=== PATIENT | male | born 1940 | race Caucasian/White ===

== ENCOUNTER 2018-08-25 11:08 | Inpatient (IN) ==
[2018-08-25 12:40] LABS: Baso % (Auto) 0.6 % (0.0-2.0); Eos # (Auto) 0.1 th/mm3 (0.0-0.4); Eos % (Auto) 2.4 % (0.0-4.0); Hematocrit 30.9 % (39.0-51.0); Hemoglobin 9.6 gm/dL (13.0-17.0); Lymph # (Auto) 1.5 th/mm3 (1.0-4.8); Lymph % (Auto) 33.6 % (9.0-44.0); Mean Corpuscular Hemoglobin 23.4 pg (27.0-34.0); Mean Corpuscular Volume 75.7 fL (80.0-100.0); Mean Platelet Volume 11.6 fL (7.0-11.0); Mono # (Auto) 0.7 th/mm3 (0.0-0.9); Mono % (Auto) 14.2 % (0.0-8.0); Neut # (Auto) 2.3 th/mm3 (1.8-7.7); Neut % (Auto) 49.2 % (16.0-70.0); Platelet Count 149 th/mm3 (150-450); Red Blood Count 4.09 mil/mm3 (4.50-5.90); Red Cell Distribution Width 26.5 % (11.6-17.2); White Blood Count 4.6 th/mm3 (4.0-11.0)
[2018-08-25 12:41] LABS: Mean Corpuscular HGB Conc 30.9 % (32.0-36.0)
[2018-08-25 12:43] LABS: Activated Partial Thrombo Time 29.4 sec (23.4-31.7); INR 1.2 Ratio; Prothrombin Time 12.5 sec (9.8-11.6)
--- NOTE | 2018-08-25 12:46 | XR ---
EXAM DATE: 08/25/2018 12:30 PM EST AGE/SEX: 78 years / Male INDICATIONS: Shortness of breath. CLINICAL DATA: This is the patient's initial encounter. Patient reports that signs and symptoms have been present for 1 day and indicates a pain score of 0/10. MEDICAL/SURGICAL HISTORY: Cardiovascular disease. CABG. Pacemaker. COMPARISON: No prior exams available for comparison. FINDINGS: Portable AP view of the chest demonstrates a normal-sized cardiac silhouette in this patient post med jose r sternotomy and valve replacement. Left chest wall pacing device is present with leads overlying t he heart. EKG lines overlie the patient. There is mild perihilar and lower lung zone interstitial opa city. No pleural effusion, pneumothorax, or focal consolidation is identified. Bones and soft tissues demonstrate no acute abnormality. CONCLUSION: Mild perihilar and lower lung zone interstitial opacity. This pattern is suggestive of pulmonary leslie a. Electronically signed by: Anmol Bowens MD 08/25/2018 12:44 PM EST
[2018-08-25 12:52] LABS: Alanine Aminotransferase 33 U/L (12-78); Albumin 3.4 g/dL (3.4-5.0); Anion Gap 8 meq/L (5-15); Aspartate Aminotransferase 32 U/L (15-37); Blood Urea Nitrogen 39 mg/dL (7-18); Calcium 8.1 mg/dL (8.5-10.1); Carbon Dioxide 25.5 meq/L (21.0-32.0); Chloride 106 meq/L (98-107); Glomerular Filtration Rate 64 mL/min (>89); Glucose,Random 87 mg/dL (74-106); Potassium 4.1 meq/L (3.5-5.1); Sodium 139 meq/L (136-145)
--- NOTE | 2018-08-25 12:55 | ED ---
HPI General Chief Complaint: Chest Pain Stated Complaint: doc sent/abnl ekg Time Seen by Provider: 08/25/18 12:04 Source: patient Mode of arrival: ambulatory Limitations: no limitations History of Present Illness HPI narrative: Patient is a 78-year-old male with history of hypertension, diabetes, obesity, hyperlipidemia who was sent to the emergency room by his coroner technician, Dr. Baig for admission. Patient reports that he was seen in the office today and was told to go to the emergency room for admission. He has a [employer] pacemaker, it was interrogated today and it showed a possible RV lead fracture. Patient reports that he has been having shortness of breath at nighttime, reports that he has swelling to his lower extremities, he was told to come to the ER to have his pacemaker repaired as well as have the " fluid taken off of me." Reports that every night, he has chest pain. Patient reports that he does have a pressure to his chest only at night time. this has been ongoing for "a long time." Patient currently with no chest pain at this time. Related Data Home Medications Medication Instructions Recorded Confirmed aspirin 81 mg PO DAILY 08/25/18 08/25/18 atorvastatin 20 mg PO DAILY 08/25/18 08/25/18 bumetanide 1 mg PO BID 08/25/18 08/25/18 ferrous sulfate [iron] 325 mg PO DAILY 08/25/18 08/25/18 levothyroxine 200 mcg PO 5 TIMES A DAY 08/25/18 08/25/18 levothyroxine 300 mcg PO 2XWEEK 08/25/18 08/25/18 metformin 1,000 mg PO BID 08/25/18 08/25/18 rivaroxaban [Xarelto] 20 mg PO DAILY 08/25/18 08/25/18 sacubitril-valsartan [Entresto] 1 tab PO BID 08/25/18 08/25/18 tamsulosin 0.4 mg PO DAILY 08/25/18 08/25/18 Allergies Allergy/AdvReac Type Severity Reaction Status Date / Time No Known Allergies Allergy Verified 08/25/18 12:07 Review of Systems ROS: all other systems reviewed are negative [facility] Medical History Medical History Atrial fibrillation (Acute) Biventricular ICD (implantable cardioverter-defibrillator) in place (Acute) CAD (coronary artery disease) (Acute) CHF (congestive heart failure) (Acute) Cardiomyopathy (Acute) Carotid artery disease (Acute) DVT (deep venous thrombosis) (Acute) Dyslipidemia (Acute) Hypertension (Acute) Pacemaker (Acute) Pleural effusion (Acute) SOB (shortness of breath) (Acute) Surgical History Surgical History AICD (automatic cardioverter/defibrillator) present (Acute) H/O cardiac catheterization (Acute) History of back surgery (Acute) History of hip replacement (Acute) Hx of CABG (Acute) Social History Social History Substance History: No History of Abuse Smoking Status: Never smoker How Often Do You Have a Drink Containing Alcohol: Never Recent Travel in [facility] within the Last 8 Weeks: No Recent Out of Country Travel within the Last 8 Weeks: No Immunization History Tetanus Immunization: Never Vaccinated Exam Narrative Exam Narrative: GENERAL: NAD SKIN: Focused skin assessment warm/dry. HEAD: Atraumatic. Normocephalic. EYES: Pupils equal and round. No scleral icterus. No injection or drainage. ENT: No nasal bleeding or discharge. Mucous membranes pink and moist. NECK: Trachea midline. No JVD. CARDIOVASCULAR: Regular rate and rhythm. No murmur appreciated. RESPIRATORY: No accessory muscle use. Clear to auscultation. Breath sounds equal bilaterally. GASTROINTESTINAL: Abdomen soft, non-tender, nondistended. Hepatic and splenic margins not palpable. MUSCULOSKELETAL: No obvious deformities. No clubbing. No cyanosis. +3 pedal edema. NEUROLOGICAL: Awake and alert. No obvious cranial nerve deficits. Motor grossly within normal limits. Normal speech. PSYCHIATRIC: Appropriate mood and affect; insight and judgment normal. Course Initial Documented Vital Signs Temperature 98.1 F 08/25/18 11:20 Pulse Rate 68 08/25/18 11:20 Respiratory Rate 18 08/25/18 11:20 Blood Pressure 123/56 L 08/25/18 11:20 Pulse Oximetry 98 08/25/18 11:20 Last Documented Vital Signs Temperature 98.1 F 08/25/18 11:20 Pulse Rate 81 08/25/18 12:18 Respiratory Rate 16 08/25/18 12:16 Blood Pressure 182/64 H 08/25/18 12:16 Pulse Oximetry 99 08/25/18 12:18 Medical Decision Making MDM Narrative Medical decision making narrative: During the course of the patients emergency department visit, the patients history, examination, and differential diagnosis were reviewed with the patient. The patient was placed on a cardiac care nurse with oximetry and frequent blood pressure monitoring. The patient had an IV access obtained and blood work sent for analysis. The patient was initially provided aspirin as patient did complain of chest pain. Call made to Dr. Baig to review case Call reviewed with Dr. Baig, request admission to medicine service and nuclear stress test. Consult to cardiology. Request heparin drip - he was seen in the office for the first time today, he is poorly managed and there is concern for unstable angina. 1st set of trop less than 0.02 will admit to medicine service case reviewed with FP resident - will admit to Dr. Sandhu service Medical Screen Exam Complete: Yes Emergency Medical Condition: Yes Differential Diagnosis Differential Diagnosis: ACS, arrhythmia, CHF exacerbation, RV lead failure to pacemaker. Lab Data Result diagrams: 08/25/18 12:20 08/25/18 12:20 Lab Results 08/25/18 08/25/18 08/25/18 Range/Units 12:20 12:20 12:20 WBC 4.6 (4.0-11.0) th/mm3 RBC 4.09 L (4.50-5.90) mil/mm3 Hgb 9.6 L (13.0-17.0) gm/dL Hct 30.9 L (39.0-51.0) % MCV 75.7 L (80.0-100.0) fL MCH 23.4 L (27.0-34.0) pg MCHC 30.9 L (32.0-36.0) % RDW 26.5 H (11.6-17.2) % Plt Count 149 L (150-450) th/mm3 MPV 11.6 H (7.0-11.0) fL Prelim Diff (Auto) Slide review pending Neut % (Auto) 49.2 (16.0-70.0) % Lymph % (Auto) 33.6 (9.0-44.0) % Republic % (Auto) 14.2 H (0.0-8.0) % Eos % (Auto) 2.4 (0.0-4.0) % Baso % (Auto) 0.6 (0.0-2.0) % Neut # (Auto) 2.3 (1.8-7.7) th/mm3 Lymph # (Auto) 1.5 (1.0-4.8) th/mm3 Republic # (Auto) 0.7 (0.0-0.9) th/mm3 Eos # (Auto) 0.1 (0.0-0.4) th/mm3 Baso # (Auto) 0.0 (0.0-0.2) th/mm3 WBC Differential . Diff Scan Auto diff confirmed Differential Comment . Platelet Estimate Low L (Normal) Platelet Morphology Enlarged H (Normal) Dimorphic RBCs Present H (None) Ovalocytes 1+ H (None) Acanthocytes (Spur) Occ H (None) PT 12.5 H (9.8-11.6) sec INR 1.2 Ratio APTT 29.4 (23.4-31.7) sec Sodium 139 (136-145) meq/L Potassium 4.1 (3.5-5.1) meq/L Chloride 106 (98-107) meq/L Carbon Dioxide 25.5 (21.0-32.0) meq/L Anion Gap 8 (5-15) meq/L BUN 39 H (7-18) mg/dL Creatinine 1.11 (0.60-1.30) mg/dL Estimated GFR 64 L (>89) mL/min Random Glucose 87 (74-106) mg/dL Calcium 8.1 L (8.5-10.1) mg/dL Total Bilirubin 0.8 (0.2-1.0) mg/dL AST 32 (15-37) U/L ALT 33 (12-78) U/L Alkaline Phosphatase 141 H (45-117) U/L Total Creatine Kinase 38 L (39-308) U/L Troponin I Less than 0.02 L (0.02-0.05) ng/mL B-Natriuretic Peptide (0-100) pg/mL Total Protein 8.1 (6.4-8.2) g/dL Albumin 3.4 (3.4-5.0) g/dL 08/25/18 Range/Units 12:20 WBC (4.0-11.0) th/mm3 RBC (4.50-5.90) mil/mm3 Hgb (13.0-17.0) gm/dL Hct (39.0-51.0) % MCV (80.0-100.0) fL MCH (27.0-34.0) pg MCHC (32.0-36.0) % RDW (11.6-17.2) % Plt Count (150-450) th/mm3 MPV (7.0-11.0) fL Prelim Diff (Auto) Neut % (Auto) (16.0-70.0) % Lymph % (Auto) (9.0-44.0) % Republic % (Auto) (0.0-8.0) % Eos % (Auto) (0.0-4.0) % Baso % (Auto) (0.0-2.0) % Neut # (Auto) (1.8-7.7) th/mm3 Lymph # (Auto) (1.0-4.8) th/mm3 Republic # (Auto) (0.0-0.9) th/mm3 Eos # (Auto) (0.0-0.4) th/mm3 Baso # (Auto) (0.0-0.2) th/mm3 WBC Differential Diff Scan Differential Comment Platelet Estimate (Normal) Platelet Morphology (Normal) Dimorphic RBCs (None) Ovalocytes (None) Acanthocytes (Spur) (None) PT (9.8-11.6) sec INR Ratio APTT (23.4-31.7) sec Sodium (136-145) meq/L Potassium (3.5-5.1) meq/L Chloride (98-107) meq/L Carbon Dioxide (21.0-32.0) meq/L Anion Gap (5-15) meq/L BUN (7-18) mg/dL Creatinine (0.60-1.30) mg/dL Estimated GFR (>89) mL/min Random Glucose (74-106) mg/dL Calcium (8.5-10.1) mg/dL Total Bilirubin (0.2-1.0) mg/dL AST (15-37) U/L ALT (12-78) U/L Alkaline Phosphatase (45-117) U/L Total Creatine Kinase (39-308) U/L Troponin I (0.02-0.05) ng/mL B-Natriuretic Peptide 442 H (0-100) pg/mL Total Protein (6.4-8.2) g/dL Albumin (3.4-5.0) g/dL Imaging Data Radiologist's impression: Chest X-Ray 08/25/18 12:15 CONCLUSION: Mild perihilar and lower lung zone interstitial opacity. This pattern is suggestive of pulmonary edema. ECG Data EKG Prior to Arrival: No Attestation: I personally reviewed and interpreted this ECG as follows: Interpretation: EKG at 1216 shows ventricular paced at 77bpm, qt/qtc: 444/480 Discharge Plan Discharge Disposition Patient Disposition: ED Admit(ED Internal Use Only) Discharge Condition Condition: Fair Discharge Order Discharge Orders: ED Use Only Admit Order (Routine); Ordered 08/25/18 Ordered By: Angelica Ortiz Discharge Details Diagnosis: Unstable angina Physicians Team ED Provider: Angelica Ortiz Primary Care Provider: UNKNOWN, Rxs /Orders / Referrals /Forms Prescriptions: No Action metformin 500 mg Tablet 1,000 mg PO BID RF: 0 atorvastatin 20 mg Tablet 20 mg PO DAILY RF: 0 aspirin 81 mg Tablet,Delayed Release (Dr/Ec) 81 mg PO DAILY RF: 0 tamsulosin 0.4 mg Capsule 0.4 mg PO DAILY RF: 0 ferrous sulfate [iron] 325 mg (65 mg iron) Tablet 325 mg PO DAILY RF: 0 bumetanide 1 mg Tablet 1 mg PO BID RF: 0 levothyroxine 200 mcg Tablet 300 mcg PO 2XWEEK RF: 0 levothyroxine 200 mcg Tablet 200 mcg PO 5 TIMES A DAY RF: 0 rivaroxaban [Xarelto] 20 mg Tablet 20 mg PO DAILY RF: 0 sacubitril-valsartan [Entresto] 24-26 mg Tablet 1 tab PO BID RF: 0 Discharge Instructions Patient Printed Instructions: Chest Pain (ED) Status ED Status: With Doctor
[2018-08-25 12:56] LABS: Alkaline Phosphatase 141 U/L (45-117); Total Protein 8.1 g/dL (6.4-8.2)
[2018-08-25 12:57] LABS: Creatine Kinase 38 U/L (39-308)
[2018-08-25 13:06] LABS: Acanthocytes Occ; Dimorphic RBC Present; Ovalocytes 1+
--- NOTE | 2018-08-25 13:57 | P.HPFP ---
History of Present Illness Primary Care Physician: UNKNOWN <Safia Weiss R - 08/26/18 10:57> Dr. García <Sherry Pereyra U - 08/25/18 16:27> History of Present Illness: Patient is a 78-year-old male with past medical history of congestive heart failure with pacemaker placement, diabetes, hypertension, and DVT that [facility] with a chief complaint of chest pain of several weeks duration. He describes the chest pain as steady pain that happens only at night for which he takes 2 [id number]-fhowuyh pain pills. By the time he wakes up in the morning, the pain is gone. However he has increasingly become short of breath with short distances such that he has to stop and catch his breath. He is unable to perform certain tasks without being short of breath. He sleeps upright and uses 2-3 pillows at night. He has also been very congested and sometimes coughs up white phlegm. His primary care doctor referred him to a paper bags sewing machine operator who interrogated his pacemaker and discovered something wrong with it. Consequently, he was referred to Dr. Baig who he saw this morning. Dr. Baig identified fracture in his pacemaker and asked him to come into the ED because he was so short of breath and because of his history of chest pain. He was told that fluid needs to be taken off of him. Notably, the patient lives by himself and generally eats daily at the restaurant. He states that he has been restricting his fluids but has not really been restricting salt. He has had chills but no fever. He also reports having itchy dry skin. He denies nausea, vomiting, dizziness, dysuria. He has felt weak and fatigued and has lacked energy. In addition he reports pain in his right side that is chronic, he feels like it is due to the way he sleeps. He states that he needs glasses because his vision is not the best. <Sherry Pereyra U - 08/25/18 17:01> - Diagnosis (1) Acute exacerbation of CHF (congestive heart failure) (2) Unstable angina (3) Pacemaker failure (4) Diabetes mellitus type 2 in obese (5) Hypertension (6) Hypothyroidism (7) Anemia (8) Thrombocytopenia <Safia Weiss - 08/26/18 10:57> (1) Acute exacerbation of CHF (congestive heart failure) (2) Unstable angina (3) Pacemaker failure (4) Diabetes mellitus type 2 in obese (5) Hypertension (6) Hypothyroidism (7) Anemia (8) Thrombocytopenia <[facility] 08/25/18 17:24> Inpatient Certification: I certify that the inpatient services were ordered in accordance with Medicare regulations governing the order. This includes certification that hospital inpatient services are reasonable and necessary and in the case of services not specified as inpatient-only under 42 CFR 419.22(n), that they are appropriately provided as inpatient services in accordance to with the 2-midnight benchmark under 43 CFR 412.3(e) <Safia Weiss [facility] 08/26/18 10:57> Review of Systems Constitutional: Reports chills, Reports fatigue, Reports weakness, Denies fever( s), Denies headache(s) <[facility] 08/25/18 16:30> Eyes: Reports blurry vision (chronic) <[facility] 08/25/18 16:30> Ears, Nose, Mouth, and Throat: Denies dizziness, Denies nasal congestion, Denies sore throat <[facility] 08/25/18 16:30> Cardiovascular: Reports chest pain, Reports chest pain with activity, Reports shortness of breath, Reports shortness of breath with activity, Reports shortness of breath when lying down <[facility] 08/25/18 16:30> Respiratory: Reports cough, Reports shortness of breath, Reports shortness of breath with activity <[facility] 08/25/18 16:30> Gastrointestinal: Reports nausea, Denies abdominal pain, Denies constipation, Denies vomiting blood <[facility] 08/25/18 16:30> Genitourinary: Denies blood in urine, Denies difficulty urinating <[facility] 08/25/18 16:30> Musculoskeletal: Denies muscle weakness <[facility] 08/25/18 16:30> Skin/Breast: Reports dry skin, Denies itching <[facility] 08/25/18 16:30> Neurologic: Denies dizziness <[facility] 08/25/18 16:30> Endocrine: Denies heat intolerance <Sherry Pereyra - 08/25/18 16:30> PMFSH - History History Provided By: Patient <Sherry Pereyra [facility] 08/25/18 13:57> - Medical History Medical History: Medical History (Last Reviewed 08/25/18 @ 16:30 by Sherry Pereyra MD, R3) Pacemaker Atrial fibrillation Biventricular ICD (implantable cardioverter-defibrillator) in place CAD (coronary artery disease) CHF (congestive heart failure) Cardiomyopathy Carotid artery disease DVT (deep venous thrombosis) Dyslipidemia Hypertension Pleural effusion SOB (shortness of breath) <Safia Weiss - 08/26/18 10:57> Medical History (Last Reviewed 08/25/18 @ 16:30 by Sherry Pereyra MD, R3) Pacemaker Atrial fibrillation Biventricular ICD (implantable cardioverter-defibrillator) in place CAD (coronary artery disease) CHF (congestive heart failure) Cardiomyopathy Carotid artery disease DVT (deep venous thrombosis) Dyslipidemia Hypertension Pleural effusion SOB (shortness of breath) <Sherry Pereyra [facility] 08/25/18 16:31> - Surgical History Surgical History: Surgical History (Last Reviewed 08/25/18 @ 16:30 by Sherry Pereyra MD, R3) AICD (automatic cardioverter/defibrillator) present H/O cardiac catheterization History of back surgery History of hip replacement Hx of CABG <Safia Weiss [facility] 08/26/18 10:57> Surgical History (Last Reviewed 08/25/18 @ 16:30 by Sherry Pereyra MD, R3) AICD (automatic cardioverter/defibrillator) present H/O cardiac catheterization History of back surgery History of hip replacement Hx of CABG <Sherry Pereyra [facility] 08/25/18 16:31> - Social History I have reviewed the patient's Social History: Yes <Sherry Pereyra 08/25/18 16 :31> - Tobacco History Smoking Status: Former smoker (Smoked an average 1 pack/day x 61-years) <Sherry Pereyra 08/25/18 16:31> - Alcohol History How Often Do You Have a Drink Containing Alcohol: Never <Sherry Pereyra 08/25 13:57> - Substance Use History Substance History: No History of Abuse <Sherry Pereyra U - 08/25/18 13:57> - Travel History Recent Travel in the [place] Within the Last 8 Weeks: No <Sherry Pereyra U - 13:57> Recent Travel Out of the Country Within the Last 8 Weeks: No <Sherry Pereyra U - 08/25/18 13:57> - Immunization History Tetanus Immunization: Never Vaccinated <Sherry Pereyra U - 08/25/18 13:57> Medications and Allergies Allergies Allergy/AdvReac Type Severity Reaction Status Date / Time No Known Allergies Allergy Verified 08/25/18 12:07 <Safia Weiss R - 08/26/18 10:57> Home Medications Medication Instructions Recorded Confirmed Type aspirin 81 mg PO DAILY 08/25/18 08/25/18 History atorvastatin 20 mg PO DAILY 08/25/18 08/25/18 History bumetanide 1 mg PO BID 08/25/18 08/25/18 History ferrous sulfate [iron] 325 mg PO DAILY 08/25/18 08/25/18 History levothyroxine 200 mcg PO 5XW 08/25/18 08/25/18 History levothyroxine 300 mcg PO 2XWEEK 08/25/18 08/25/18 History metformin 1,000 mg PO BID 08/25/18 08/25/18 History rivaroxaban [Xarelto] 20 mg PO DAILY 08/25/18 08/25/18 History sacubitril-valsartan [Entresto] 1 tab PO BID 08/25/18 08/25/18 History tamsulosin 0.4 mg PO DAILY 08/25/18 08/25/18 History <Safia Weiss R - 08/26/18 10:57> Active Medications: Active Medications Acetaminophen (Tylenol) 650 mg PO Q4H PRN PRN Reason: Temp > 100.4 Aspirin (Ecotrin) 81 mg PO DAILY [facility] Last Admin: 08/26/18 09:53 Dose: 81 mg Atorvastatin Calcium (Lipitor) 40 mg PO DAILY [facility] Last Admin: 08/26/18 09:52 Dose: 40 mg Bumetanide (Bumex Inj) 1 mg IV.PUSH BID@0900,1800 [facility] Last Admin: 08/26/18 09:52 Dose: 1 mg Dextrose (D50w Vial) 50 ml IV.PUSH UNSCH PRN PRN Reason: PER HYPOGLYCEMIA PROTOCOL Diphenhydramine HCl (Benadryl) 25 mg PO ONCE PRN PRN Reason: ITCHING/HIVES/ANAPHYLAXIS Last Admin: 08/25/18 23:00 Dose: 25 mg Diphenhydramine HCl (Benadryl) 25 mg PO Q6H PRN PRN Reason: ITCHING AND/OR RASH Last Admin: 08/26/18 06:53 Dose: 25 mg Ferrous Sulfate (Ferosul) 325 mg PO DAILY [facility] Last Admin: 08/26/18 09:53 Dose: 325 mg Glucagon (Glucagon Inj) 1 mg OTHER UNSCH PRN PRN Reason: for Hypoglycemia Protocol Heparin Sodium/Dextrose (Heparin/D5w 25,000 U/250 Ml) 25,000 unit in 250 mls @ 0 mls/hr IV.CONT TITRATE PRN; Protocol PRN Reason: Per Protocol Last Titration: 08/26/18 04:05 Dose: 1,100 units/hr, 11 mls/hr Insulin Aspart (Novolog Insulin Correctional Sugar Inj) 0 unit SQ ACHS [facility]; Protocol Last Admin: 08/26/18 09:53 Dose: 1 unit Levothyroxine Sodium (Synthroid) 200 mcg PO MoTuWeThFr@0600 [facility] Levothyroxine Sodium (Synthroid) 300 mcg PO SuSa@0600 [facility] Last Admin: 08/26/18 06:24 Dose: 300 mcg Morphine Sulfate (Morphine Inj) 2 mg IV.PUSH Q4H PRN PRN Reason: PAIN SCALE 6 TO 10 Ondansetron HCl (Zofran Inj) 4 mg IV.PUSH Q6H PRN PRN Reason: NAUSEA Sacubitril/Valsartan (Entresto 24 Mg/26 Mg Tablet) 1 tab PO BID [facility] Last Admin: 08/26/18 09:53 Dose: 1 tab Senna/Docusate Sodium (Siomara-Colace) 1 tab PO BID PRN PRN Reason: CONSTIPATION Sodium Chloride (Ns Flush) 2 ml IV.FLUSH BID [facility] Last Admin: 08/26/18 10:21 Dose: Not Given Sodium Chloride (Ns Flush) 2 ml IV.FLUSH UNSCH PRN PRN Reason: FLUSH AFTER USING IV ACCESS Tamsulosin HCl (Flomax) 0.4 mg PO DAILY [facility] Last Admin: 08/26/18 09:53 Dose: 0.4 mg <Safia Weiss R - 08/26/18 10:57> Active Medications Heparin Sodium/Dextrose (Heparin/D5w 25,000 U/250 Ml) 25,000 unit in 250 mls @ 0 mls/hr IV.CONT TITRATE PRN; Protocol PRN Reason: Per Protocol Sodium Chloride (Ns Flush) 2 ml IV.FLUSH UNSCH PRN PRN Reason: FLUSH AFTER USING IV ACCESS <Sherry Pereyra U - 08/25/18 13:57> Exam Vital signs: Vital Signs 08/25/18 11:20 08/25/18 11:23 08/25/18 12:16 Temperature 98.1 F Pulse Rate 68 79 81 Respiratory Rate 18 16 16 Blood Pressure 123/56 L 182/64 H 182/64 H Pulse Oximetry 98 96 100 08/25/18 12:18 08/25/18 14:39 08/25/18 17:25 Temperature 97.6 F Pulse Rate 81 77 82 Respiratory Rate 18 18 Blood Pressure 108/63 109/59 L Pulse Oximetry 99 98 96 08/25/18 20:00 08/25/18 23:56 08/26/18 00:00 Temperature 98 F 97.7 F Pulse Rate 70 71 71 Respiratory Rate 18 17 Blood Pressure 101/58 L 93/53 L Pulse Oximetry 95 94 L 08/26/18 00:51 08/26/18 03:53 Temperature Pulse Rate 73 Respiratory Rate Blood Pressure Pulse Oximetry 96 Intake & Output 08/25/18 08/26/18 08/26/18 18:59 06:59 18:59 Intake Total 531.9 / 531.9 Balance 531.9 / 531.9 Weight 102.2 kg 102.7 kg Intake: IV 51.9 / 51.9 Heparin/D5W 25,000 U/250 mL 25, 51.9 / 51.9 000 unit In 250 ml @ Per Protocol IV.CONT TITRATE PRN Rx #:[id number] Oral 480 / 480 Other: # Voids 10 Weight On Admission 102.2 kg <Safia Weiss R - 08/26/18 10:57> Vital Signs 08/25/18 11:20 08/25/18 11:23 08/25/18 12:16 Temperature 98.1 F Pulse Rate 68 79 81 Respiratory Rate 18 16 16 Blood Pressure 123/56 L 182/64 H 182/64 H Pulse Oximetry 98 96 100 08/25/18 12:18 Temperature Pulse Rate 81 Respiratory Rate Blood Pressure Pulse Oximetry 99 Intake & Output 08/24/18 08/25/18 08/25/18 18:59 06:59 18:59 Weight 99.79 kg <Sherry Pereyra U - 08/25/18 16:36> Narrative: GENERAL: Well-developed male of stated age sitting up in bed, not in acute respiratory distress SKIN: Warm and dry. Transverse scar from pacemaker placement on left anterior chest, laparoscopic scars present on abdomen HEAD: Atraumatic. Normocephalic. EYES: Pupils equal and round. No scleral icterus. No injection or drainage. ENT: No nasal bleeding or discharge. Mucous membranes pink and moist. NECK: Trachea midline. No JVD. CARDIOVASCULAR: Regular rate and rhythm, no murmurs appreciated. RESPIRATORY: Distant breath sounds, crackles present in bilateral bases up to mid chest GASTROINTESTINAL: Abdomen soft, non-tender, nondistended. Hepatic and splenic margins not palpable. MUSCULOSKELETAL: Extremities without clubbing, cyanosis, or edema. No obvious deformities. NEUROLOGICAL: Awake and alert. No obvious cranial nerve deficits. Motor grossly within normal limits. Five out of 5 muscle strength in the arms and 4/5 strength in the legs. Pitting edema up to the knees bilaterally. Legs are tense and slightly tender to palpation. Normal speech. PSYCHIATRIC: Appropriate mood and affect; insight and judgment normal. <Sherry Pereyra U - 08/25/18 16:36> Results - Labs Result diagrams: 08/26/18 04:01 08/26/18 04:01 <Safia Weiss - 08/26/18 10:57> Abnormal lab results 08/25/18 08/25/18 08/25/18 Range/Units 12:20 12:20 12:20 RBC 4.09 L (4.50-5.90) mil/mm3 Hgb 9.6 L (13.0-17.0) gm/dL Hct 30.9 L (39.0-51.0) % MCV 75.7 L (80.0-100.0) fL MCH 23.4 L (27.0-34.0) pg MCHC 30.9 L (32.0-36.0) % RDW 26.5 H (11.6-17.2) % Plt Count 149 L (150-450) th/mm3 MPV 11.6 H (7.0-11.0) fL [place] % (Auto) 14.2 H (0.0-8.0) % Platelet Estimate Low L (Normal) Platelet Morphology Enlarged H (Normal) Dimorphic RBCs Present H (None) Ovalocytes 1+ H (None) Acanthocytes (Spur) Occ H (None) PT 12.5 H (9.8-11.6) sec APTT (23.4-31.7) sec BUN 39 H (7-18) mg/dL Estimated GFR 64 L (>89) mL/min POC Glucose (68-110) mg/dl Calcium 8.1 L (8.5-10.1) mg/dL Alkaline Phosphatase 141 H (45-117) U/L Total Creatine Kinase 38 L (39-308) U/L Troponin I Less than 0.02 L (0.02-0.05) ng/mL B-Natriuretic Peptide (0-100) pg/mL Albumin (3.4-5.0) g/dL Triglycerides (42-150) mg/dL Cholesterol (120-200) mg/dL HDL Cholesterol (40.0-60.0) mg/dL TSH (0.358-3.740) uIU/mL 08/25/18 08/25/18 08/25/18 Range/Units 12:20 19:08 19:08 RBC (4.50-5.90) mil/mm3 Hgb (13.0-17.0) gm/dL Hct (39.0-51.0) % MCV (80.0-100.0) fL MCH (27.0-34.0) pg MCHC (32.0-36.0) % RDW (11.6-17.2) % Plt Count (150-450) th/mm3 MPV (7.0-11.0) fL [place] % (Auto) (0.0-8.0) % Platelet Estimate (Normal) Platelet Morphology (Normal) Dimorphic RBCs (None) Ovalocytes (None) Acanthocytes (Spur) (None) PT (9.8-11.6) sec APTT 32.5 H (23.4-31.7) sec BUN (7-18) mg/dL Estimated GFR (>89) mL/min POC Glucose (68-110) mg/dl Calcium (8.5-10.1) mg/dL Alkaline Phosphatase (45-117) U/L Total Creatine Kinase 36 L (39-308) U/L Troponin I Less than 0.02 L (0.02-0.05) ng/mL B-Natriuretic Peptide 442 H (0-100) pg/mL Albumin (3.4-5.0) g/dL Triglycerides 39 L (42-150) mg/dL Cholesterol 71 L (120-200) mg/dL HDL Cholesterol 28.1 L (40.0-60.0) mg/dL TSH 0.208 L (0.358-3.740) uIU/mL 08/25/18 08/26/18 08/26/18 Range/Units 20:05 01:00 04:01 RBC 3.79 L (4.50-5.90) mil/mm3 Hgb 9.0 L (13.0-17.0) gm/dL Hct 28.6 L (39.0-51.0) % MCV 75.3 L (80.0-100.0) fL MCH 23.7 L (27.0-34.0) pg MCHC 31.5 L (32.0-36.0) % RDW 27.7 H (11.6-17.2) % Plt Count 123 L (150-450) th/mm3 MPV (7.0-11.0) fL [place] % (Auto) (0.0-8.0) % Platelet Estimate (Normal) Platelet Morphology (Normal) Dimorphic RBCs (None) Ovalocytes (None) Acanthocytes (Spur) (None) PT (9.8-11.6) sec APTT (23.4-31.7) sec BUN (7-18) mg/dL Estimated GFR (>89) mL/min POC Glucose 170 H (68-110) mg/dl Calcium (8.5-10.1) mg/dL Alkaline Phosphatase (45-117) U/L Total Creatine Kinase 32 L (39-308) U/L Troponin I Less than 0.02 L (0.02-0.05) ng/mL B-Natriuretic Peptide (0-100) pg/mL Albumin (3.4-5.0) g/dL Triglycerides (42-150) mg/dL Cholesterol (120-200) mg/dL HDL Cholesterol (40.0-60.0) mg/dL TSH (0.358-3.740) uIU/mL 08/26/18 08/26/18 08/26/18 Range/Units 04:01 04:01 04:01 RBC (4.50-5.90) mil/mm3 Hgb (13.0-17.0) gm/dL Hct (39.0-51.0) % MCV (80.0-100.0) fL MCH (27.0-34.0) pg MCHC (32.0-36.0) % RDW (11.6-17.2) % Plt Count (150-450) th/mm3 MPV (7.0-11.0) fL [place] % (Auto) (0.0-8.0) % Platelet Estimate (Normal) Platelet Morphology (Normal) Dimorphic RBCs (None) Ovalocytes (None) Acanthocytes (Spur) (None) PT (9.8-11.6) sec APTT 40.8 H D (23.4-31.7) sec BUN 32 H (7-18) mg/dL Estimated GFR 76 L (>89) mL/min POC Glucose (68-110) mg/dl Calcium 8.1 L (8.5-10.1) mg/dL Alkaline Phosphatase 127 H (45-117) U/L Total Creatine Kinase (39-308) U/L Troponin I (0.02-0.05) ng/mL B-Natriuretic Peptide 400 H (0-100) pg/mL Albumin 3.2 L (3.4-5.0) g/dL Triglycerides (42-150) mg/dL Cholesterol (120-200) mg/dL HDL Cholesterol (40.0-60.0) mg/dL TSH (0.358-3.740) uIU/mL Short CBC 08/25/18 08/26/18 Range/Units 12:20 04:01 WBC 4.6 4.4 (4.0-11.0) th/mm3 Hgb 9.6 L 9.0 L (13.0-17.0) gm/dL Hct 30.9 L 28.6 L (39.0-51.0) % Plt Count 149 L 123 L (150-450) th/mm3 BMP 08/25/18 08/26/18 12:20 04:01 Sodium 139 138 Potassium 4.1 3.9 Chloride 106 104 Carbon Dioxide 25.5 25.2 BUN 39 H 32 H Creatinine 1.11 0.96 Calcium 8.1 L 8.1 L Cardiac Enzymes 08/25/18 08/25/18 08/26/18 Range/Units 12:20 19:08 01:00 Total Creatine Kinase 38 L 36 L 32 L (39-308) U/L Troponin I Less than 0.02 L Less than 0.02 L Less than 0.02 L (0.02-0.05) ng/mL Liver Function 08/25/18 08/26/18 Range/Units 12:20 04:01 Total Bilirubin 0.8 0.9 (0.2-1.0) mg/dL AST 32 30 (15-37) U/L ALT 33 29 (12-78) U/L Alkaline Phosphatase 141 H 127 H (45-117) U/L Albumin 3.4 3.2 L (3.4-5.0) g/dL Urine 08/25/18 Range/Units 19:36 Urine Color Yellow (Yellw/Straw) Urine Clarity Clear (Clear) Urine pH 6.0 (5.0-8.5) Ur Specific [place] 1.009 (1.002-1.035) Urine Protein Negative (Neg-Trace) mg/dL Urine Glucose (UA) Negative (Negative) mg/dL <Safia Weiss - 08/26/18 10:57> Abnormal lab results 08/25/18 08/25/18 08/25/18 Range/Units 12:20 12:20 12:20 RBC 4.09 L (4.50-5.90) mil/mm3 Hgb 9.6 L (13.0-17.0) gm/dL Hct 30.9 L (39.0-51.0) % MCV 75.7 L (80.0-100.0) fL MCH 23.4 L (27.0-34.0) pg MCHC 30.9 L (32.0-36.0) % RDW 26.5 H (11.6-17.2) % Plt Count 149 L (150-450) th/mm3 MPV 11.6 H (7.0-11.0) fL [place] % (Auto) 14.2 H (0.0-8.0) % Platelet Estimate Low L (Normal) Platelet Morphology Enlarged H (Normal) Dimorphic RBCs Present H (None) Ovalocytes 1+ H (None) Acanthocytes (Spur) Occ H (None) PT 12.5 H (9.8-11.6) sec BUN 39 H (7-18) mg/dL Estimated GFR 64 L (>89) mL/min Calcium 8.1 L (8.5-10.1) mg/dL Alkaline Phosphatase 141 H (45-117) U/L Total Creatine Kinase 38 L (39-308) U/L Troponin I Less than 0.02 L (0.02-0.05) ng/mL B-Natriuretic Peptide (0-100) pg/mL 08/25/18 Range/Units 12:20 RBC (4.50-5.90) mil/mm3 Hgb (13.0-17.0) gm/dL Hct (39.0-51.0) % MCV (80.0-100.0) fL MCH (27.0-34.0) pg MCHC (32.0-36.0) % RDW (11.6-17.2) % Plt Count (150-450) th/mm3 MPV (7.0-11.0) fL [place] % (Auto) (0.0-8.0) % Platelet Estimate (Normal) Platelet Morphology (Normal) Dimorphic RBCs (None) Ovalocytes (None) Acanthocytes (Spur) (None) PT (9.8-11.6) sec BUN (7-18) mg/dL Estimated GFR (>89) mL/min Calcium (8.5-10.1) mg/dL Alkaline Phosphatase (45-117) U/L Total Creatine Kinase (39-308) U/L Troponin I (0.02-0.05) ng/mL B-Natriuretic Peptide 442 H (0-100) pg/mL Short CBC 08/25/18 Range/Units 12:20 WBC 4.6 (4.0-11.0) th/mm3 Hgb 9.6 L (13.0-17.0) gm/dL Hct 30.9 L (39.0-51.0) % Plt Count 149 L (150-450) th/mm3 BMP 08/25/18 12:20 Sodium 139 Potassium 4.1 Chloride 106 Carbon Dioxide 25.5 BUN 39 H Creatinine 1.11 Calcium 8.1 L Cardiac Enzymes 08/25/18 Range/Units 12:20 Total Creatine Kinase 38 L (39-308) U/L Troponin I Less than 0.02 L (0.02-0.05) ng/mL Liver Function 08/25/18 Range/Units 12:20 Total Bilirubin 0.8 (0.2-1.0) mg/dL AST 32 (15-37) U/L ALT 33 (12-78) U/L Alkaline Phosphatase 141 H (45-117) U/L Albumin 3.4 (3.4-5.0) g/dL <Sherry Pereyra U - 08/25/18 13:57> - Imaging Impressions Chest X-Ray 08/25/18 12:15 CONCLUSION: Mild perihilar and lower lung zone interstitial opacity. This pattern is suggestive of pulmonary edema. Chest X-Ray 08/26/18 14:11 CONCLUSION: Central interstitial vascular prominence which may represent mild congestion. No evidence of acute airspace disease. Otherwise stable chest <Safia Weiss R - 08/26/18 10:57> Impressions Chest X-Ray 08/25/18 12:15 CONCLUSION: Mild perihilar and lower lung zone interstitial opacity. This pattern is suggestive of pulmonary edema. <Sherry Pereyra U - 08/25/18 13:57> Caprini VTE Risk Assessment Caprini VTE Risk Assessment: Moderate/High Risk (score >= 2) <Sherry Pereyra U - 08/25/18 16:43> Caprini Risk Assessment Model: Point Value = 1 Point Value = 2 Point Value = 3 Point Value = 5 Age 41-60 Minor surgery BMI > 25 kg/m2 Swollen legs Varicose veins or History of unexplained or recurrent spontaneous Oral contraceptives or hormone replacement Sepsis (< 1 month) Serious lung disease, including pneumonia (< 1 month) Abnormal pulmonary function Acute myocardial infarction Congestive heart failure (< 1 month) History of inflammatory bowel disease Medical patient at bed rest Age 61-74 Arthroscopic surgery Major open surgery (> 45 min) Laparoscopic surgery (> 45 min) Malignancy Confined to bed (> 72 hours) Immobilizing plaster cast Central venous access Age >= 75 History of VTE Family history of VTE Factor V Leiden Prothrombin [id number] Lupus anticoagulant Anticardiolipin antibodies Elevated serum homocysteine Heparin-induced thrombocytopenia Other congenital or acquired thrombophilia Stroke (< 1 month) Elective arthroplasty Hip, pelvis, or leg fracture Acute spinal cord injury (< 1 month) <Safia Weiss - 08/26/18 10:57> Point Value = 1 Point Value = 2 Point Value = 3 Point Value = 5 Age 41-60 Minor surgery BMI > 25 kg/m2 Swollen legs Varicose veins or History of unexplained or recurrent spontaneous Oral contraceptives or hormone replacement Sepsis (< 1 month) Serious lung disease, including pneumonia (< 1 month) Abnormal pulmonary function Acute myocardial infarction Congestive heart failure (< 1 month) History of inflammatory bowel disease Medical patient at bed rest Age 61-74 Arthroscopic surgery Major open surgery (> 45 min) Laparoscopic surgery (> 45 min) Malignancy Confined to bed (> 72 hours) Immobilizing plaster cast Central venous access Age >= 75 History of VTE Family history of VTE Factor V Leiden Prothrombin [id number] Lupus anticoagulant Anticardiolipin antibodies Elevated serum homocysteine Heparin-induced thrombocytopenia Other congenital or acquired thrombophilia Stroke (< 1 month) Elective arthroplasty Hip, pelvis, or leg fracture Acute spinal cord injury (< 1 month) <Sherry Pereyra U - 08/25/18 13:57> Prophylaxis Regimen: Total Risk Factor Score Risk Level Prophylaxis Regimen 0-1 Low Early ambulation 2 Moderate Order ONE of the following: *Sequential Compression Device (SCD) *Heparin 5000 units SQ BID 3-4 Higher Order ONE of the following medications: *Heparin 5000 units SQ TID *Enoxaparin/Lovenox 40 mg SQ daily (WT < 150 kg, CrCl > 30 mL/min) *Enoxaparin/Lovenox 30 mg SQ daily (WT < 150 kg, CrCl > 10-29 mL/min) *Enoxaparin/Lovenox 30 mg SQ BID (WT < 150 kg, CrCl > 30 mL/min) AND/OR *Sequential Compression Device (SCD) 5 or more Highest Order ONE of the following medications: *Heparin 5000 units SQ TID (Preferred with Epidurals) *Enoxaparin/Lovenox 40 mg SQ daily (WT < 150 kg, CrCl > 30 mL/min) *Enoxaparin/Lovenox 30 mg SQ daily (WT < 150 kg, CrCl > 10-29 mL/min) *Enoxaparin/Lovenox 30 mg SQ BID (WT < 150 kg, CrCl > 30 mL/min) AND *Sequential Compression Device (SCD) <Safia Weiss R - 08/26/18 10:57> Total Risk Factor Score Risk Level Prophylaxis Regimen 0-1 Low Early ambulation 2 Moderate Order ONE of the following: *Sequential Compression Device (SCD) *Heparin 5000 units SQ BID 3-4 Higher Order ONE of the following medications: *Heparin 5000 units SQ TID *Enoxaparin/Lovenox 40 mg SQ daily (WT < 150 kg, CrCl > 30 mL/min) *Enoxaparin/Lovenox 30 mg SQ daily (WT < 150 kg, CrCl > 10-29 mL/min) *Enoxaparin/Lovenox 30 mg SQ BID (WT < 150 kg, CrCl > 30 mL/min) AND/OR *Sequential Compression Device (SCD) 5 or more Highest Order ONE of the following medications: *Heparin 5000 units SQ TID (Preferred with Epidurals) *Enoxaparin/Lovenox 40 mg SQ daily (WT < 150 kg, CrCl > 30 mL/min) *Enoxaparin/Lovenox 30 mg SQ daily (WT < 150 kg, CrCl > 10-29 mL/min) *Enoxaparin/Lovenox 30 mg SQ BID (WT < 150 kg, CrCl > 30 mL/min) AND *Sequential Compression Device (SCD) <Sherry Pereyra U - 08/25/18 13:57> Assessment and Plan - Assessment (1) Acute exacerbation of CHF (congestive heart failure) Code(s): I50.9 - Heart failure, unspecified Status: Acute (2) Unstable angina Code(s): I20.0 - Unstable angina Status: Acute (3) Pacemaker failure Code(s): T82.118A - Breakdown (mechanical) of other cardiac electronic device, initial encounter Status: Acute (4) Diabetes mellitus type 2 in obese Code(s): E11.69 - Type 2 diabetes mellitus with other specified complication; E66.9 - Obesity, unspecified Status: Acute (5) Hypertension Code(s): I10 - Essential (primary) hypertension Status: Acute (6) Hypothyroidism Code(s): E03.9 - Hypothyroidism, unspecified Status: Acute (7) Anemia Code(s): D64.9 - Anemia, unspecified Status: Acute (8) Thrombocytopenia Code(s): D69.6 - Thrombocytopenia, unspecified Status: Acute <Safia Weiss R - 08/26/18 10:57> (1) Acute exacerbation of CHF (congestive heart failure) Code(s): I50.9 - Heart failure, unspecified Status: Acute (2) Unstable angina Code(s): I20.0 - Unstable angina Status: Acute (3) Pacemaker failure Code(s): T82.118A - Breakdown (mechanical) of other cardiac electronic device, initial encounter Status: Acute (4) Diabetes mellitus type 2 in obese Code(s): E11.69 - Type 2 diabetes mellitus with other specified complication; E66.9 - Obesity, unspecified Status: Acute (5) Hypertension Code(s): I10 - Essential (primary) hypertension Status: Acute (6) Hypothyroidism Code(s): E03.9 - Hypothyroidism, unspecified Status: Acute (7) Anemia Code(s): D64.9 - Anemia, unspecified Status: Acute (8) Thrombocytopenia Code(s): D69.6 - Thrombocytopenia, unspecified Status: Acute <Sherry Pereyra U - 08/25/18 17:24> - Assessment and Plan 78-year-old male presents with unstable angina and CHF exacerbation with pulmonary edema seen on chest x-ray. He will be admitted for diuresis and ACS rule out. He is scheduled to have a nuclear stress test in the morning. Cardiology has been consulted to assist with management. CHF exacerbation * Chest x-ray shows pulmonary edema * BNP elevated at 442 * Patient on Bumex p.o. at home * Start Bumex 1 mg IV twice daily * Continue Entresto at current dose * Repeat chest x-ray in the a.m. * Strict I's and O's * Fluid restrict to 1.5 L daily Unstable angina * Initial troponin less than 0.02, creatinine kinase 38, will trend x2 * EKG shows paced rhythm with no signs of ACS, will trend x2 * Received aspirin 162 mg in the ED, patient takes 81 mg daily * Continue aspirin 81 mg * Heparin drip per Dr. Baig * Cardiology consult pending-appreciate recommendations Pacemaker fracture * Dr. Baig is aware of patient in the hospital and plans to repair his pacemaker after he has been evaluated for angina and adequately diuresed Anemia * H/H 9.6/30.9 * On iron supplementation at home * Monitor closely * Consider iron studies Thrombocytopenia * Mildly thrombocytopenic at 149 * Will monitor closely due to patient currently being on heparin Diabetes type 2 * Hold metformin * Accu-Cheks with low-dose sliding scale insulin Hypertension * BP elevated to the 180s systolic on admission but now normotensive * Watch for hypotension * Consider clonidine for SBP > 180 or DBP >100 Hypothyroidism * Continue home dose of levothyroxine 300 mg Tuesday through Tuesday and 200 mg Tuesday and Tuesday * Check TSH and free T4 DVT prophylaxis: On heparin drip * Continue home Xarelto when heparin drip is discontinued FEN * Oral fluids only, restrict to 1.5 L * Will monitor electrolytes and replace as needed, watch for hypokalemia on Bumex * Cardiac diet <Sherry Pereyra U - 08/25/18 17:24> Discussed Condition With: Dr. Weiss attending, Dr. Rothman PGY-[address] Trujillo, PGY-2; Dr. 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 Agree with the admission and the assessment and plan. <Safia Weiss R - 08/26/18 10:57>
[2018-08-25] MEDS ORDERED: Morphine Inj 4 MG/ML Vial IV.PUSH PRN (14:07)
[2018-08-25] MEDS: Heparin Drip 25,000 UNIT/250 ML BAG IV.CONT PRN (14:08)
[2018-08-25] MEDS ORDERED: Dextrose 50% in Water 50 ML Vial IV.PUSH PRN (14:20)
[2018-08-25] MEDS ORDERED: Senna/Docusate Sodium 8.6/50 MG Tablet PO PRN (17:25)
[2018-08-25] MEDS ORDERED: Acetaminophen 325 MG Tablet PO PRN (17:25)
[2018-08-25] MEDS: Insulin NovoLOG Aspart Correctional Sugar Inj SQ SCH ×2 (18:48→22:16)
[2018-08-25 20:05] LABS: Cholesterol 71 mg/dL (120-200)
[2018-08-25 20:14] LABS: Chol/HDL Ratio 2.52 Ratio; HDL Cholesterol 28.1 mg/dL (40.0-60.0); LDL Cholesterol,Calculated 35 mg/dL (0-99); Thyroid Stimulating Hormone 0.208 uIU/mL (0.358-3.740); Triglycerides 39 mg/dL (42-150)
[2018-08-25 20:15] LABS: Creatine Kinase 36 U/L (39-308)
[2018-08-25 20:40] LABS: Bilirubin,Urine Negative (Negative); Clarity,Urine Clear (Clear); Color,Urine Yellow (Yellw/Straw); Glucose,Urine (UA) Negative (Negative); Hyaline Casts,Urine 1 /lpf (0-3); Leukocyte Esterase,Urine Negative (Negative); Nitrite,Urine Negative (Negative); Specific Gravity,Urine 1.009 (1.002-1.035)
[2018-08-26 02:36] LABS: Creatine Kinase 32 U/L (39-308)
[2018-08-26 04:51] LABS: Hematocrit 28.6 % (39.0-51.0); Mean Corpuscular HGB Conc 31.5 % (32.0-36.0); Mean Corpuscular Hemoglobin 23.7 pg (27.0-34.0); Mean Corpuscular Volume 75.3 fL (80.0-100.0); Mean Platelet Volume 10.7 fL (7.0-11.0); Platelet Count 123 th/mm3 (150-450); Red Blood Count 3.79 mil/mm3 (4.50-5.90); Red Cell Distribution Width 27.7 % (11.6-17.2); White Blood Count 4.4 th/mm3 (4.0-11.0)
[2018-08-26 05:22] LABS: Albumin 3.2 g/dL (3.4-5.0); Anion Gap 9 meq/L (5-15); Aspartate Aminotransferase 30 U/L (15-37); Blood Urea Nitrogen 32 mg/dL (7-18); Calcium 8.1 mg/dL (8.5-10.1); Carbon Dioxide 25.2 meq/L (21.0-32.0); Chloride 104 meq/L (98-107); Glomerular Filtration Rate 76 mL/min (>89); Glucose,Random 84 mg/dL (74-106); Potassium 3.9 meq/L (3.5-5.1); Sodium 138 meq/L (136-145)
[2018-08-26 05:25] LABS: Alanine Aminotransferase 29 U/L (12-78); Alkaline Phosphatase 127 U/L (45-117); Total Protein 7.9 g/dL (6.4-8.2)
--- NOTE | 2018-08-26 09:03 | XR ---
EXAM DATE: 08/26/2018 8:54 AM EST AGE/SEX: 78 years / Male INDICATIONS: . Shortness of breath. CLINICAL DATA: This is the patient's subsequent encounter. Patient reports that signs and symptoms h ave been present for 2 days and indicates a pain score of 0/10. MEDICAL/SURGICAL HISTORY: Cardiovascular disease. Congestive heart failure. Pacemaker. CABG. COMPARISON: [facility], CHEST 1V SINGLE AP, 08/25/2018. . FINDINGS: Central interstitial vascular prominence has developed suggesting mild congestion. There is no eviden ce of consolidating airspace disease or significant effusion. Postsurgical changes following cardiac valve replacement are noted and appear stable. ICD device is i n stable position. CONCLUSION: Central interstitial vascular prominence which may represent mild congestion. No evidence of acute airspace disease. Otherwise stable chest Electronically signed by: Heriberto Dasilva MD 08/26/2018 9:01 AM EST
[2018-08-26] MEDS: Ferrous Sulfate 325 MG Tablet PO SCH (09:53)
[2018-08-26] MEDS: Insulin NovoLOG Aspart Correctional Sugar Inj SQ SCH ×4 (09:53→21:40)
--- NOTE | 2018-08-26 10:55 | P.PNADD ---
Addendum to Inpatient Note Reason for Addendum: Additional Documentation Additional information: Pleas see resident H&P from 08/25/18 for full documentation of the patients history. Patient feels better this morning. He is diuresing well. His swelling in his legs has improved. Denies CP or SOB. No nausea/vomiting, change in bowels. Vital Signs Temp Pulse Resp BP Pulse Ox 08/26/18 03:53 73 08/26/18 00:51 96 08/26/18 00:00 97.7 F 71 17 93/53 L 94 L 08/25/18 23:56 71 08/25/18 20:00 98 F 70 18 101/58 L 95 08/25/18 17:25 97.6 F 82 18 109/59 L 96 08/25/18 14:39 77 18 108/63 98 08/25/18 12:18 81 99 08/25/18 12:16 81 16 182/64 H 100 08/25/18 11:23 79 16 182/64 H 96 08/25/18 11:20 98.1 F 68 18 123/56 L 98 Intake and Output 08/25/18 08/26/18 08/26/18 22:59 06:59 14:59 Intake Total 51.9 / 51.9 480 / 480 Balance 51.9 / 51.9 480 / 480 Intake: IV 51.9 / 51.9 Heparin/D5W 25,000 U/250 mL 25, 51.9 / 51.9 000 unit In 250 ml @ Per Protocol IV.CONT TITRATE PRN Rx #:[id number] Oral 480 / 480 Other: # Voids 10 Weight 102.2 kg 102.7 kg Weight On Admission 102.2 kg Abnormal Labs 08/25/18 08/25/18 08/25/18 12:20 12:20 12:20 RBC 4.09 L Hgb 9.6 L Hct 30.9 L MCV 75.7 L MCH 23.4 L MCHC 30.9 L RDW 26.5 H Plt Count 149 L MPV 11.6 H Mckean % (Auto) 14.2 H Platelet Estimate Low L Platelet Morphology Enlarged H Dimorphic RBCs Present H Ovalocytes 1+ H Acanthocytes (Spur) Occ H PT 12.5 H APTT BUN 39 H Estimated GFR 64 L POC Glucose Calcium 8.1 L Alkaline Phosphatase 141 H Total Creatine Kinase 38 L Troponin I Less than 0.02 L B-Natriuretic Peptide Albumin Triglycerides Cholesterol HDL Cholesterol TSH 08/25/18 08/25/18 08/25/18 12:20 19:08 19:08 RBC Hgb Hct MCV MCH MCHC RDW Plt Count MPV Mckean % (Auto) Platelet Estimate Platelet Morphology Dimorphic RBCs Ovalocytes Acanthocytes (Spur) PT APTT 32.5 H BUN Estimated GFR POC Glucose Calcium Alkaline Phosphatase Total Creatine Kinase 36 L Troponin I Less than 0.02 L B-Natriuretic Peptide 442 H Albumin Triglycerides 39 L Cholesterol 71 L HDL Cholesterol 28.1 L TSH 0.208 L 08/25/18 08/26/18 08/26/18 20:05 01:00 04:01 RBC 3.79 L Hgb 9.0 L Hct 28.6 L MCV 75.3 L MCH 23.7 L MCHC 31.5 L RDW 27.7 H Plt Count 123 L MPV Mckean % (Auto) Platelet Estimate Platelet Morphology Dimorphic RBCs Ovalocytes Acanthocytes (Spur) PT APTT BUN Estimated GFR POC Glucose 170 H Calcium Alkaline Phosphatase Total Creatine Kinase 32 L Troponin I Less than 0.02 L B-Natriuretic Peptide Albumin Triglycerides Cholesterol HDL Cholesterol TSH 08/26/18 08/26/18 08/26/18 04:01 04:01 04:01 RBC Hgb Hct MCV MCH MCHC RDW Plt Count MPV Mckean % (Auto) Platelet Estimate Platelet Morphology Dimorphic RBCs Ovalocytes Acanthocytes (Spur) PT APTT 40.8 H D BUN 32 H Estimated GFR 76 L POC Glucose Calcium 8.1 L Alkaline Phosphatase 127 H Total Creatine Kinase Troponin I B-Natriuretic Peptide 400 H Albumin 3.2 L Triglycerides Cholesterol HDL Cholesterol TSH GENERAL: SKIN: Warm and dry. HEAD: Atraumatic. Normocephalic. EYES: Pupils equal and round. No scleral icterus. No injection or drainage. ENT: No nasal bleeding or discharge. Mucous membranes pink and moist. NECK: Trachea midline. No JVD. CARDIOVASCULAR: Regular rate and rhythm. RESPIRATORY: No accessory muscle use. Clear to auscultation. Breath sounds equal bilaterally. GASTROINTESTINAL: Abdomen soft, non-tender, nondistended. Hepatic and splenic margins not palpable. MUSCULOSKELETAL: Extremities without clubbing, cyanosis, or edema. No obvious deformities. NEUROLOGICAL: Awake and alert. No obvious cranial nerve deficits. Motor grossly within normal limits. Five out of 5 muscle strength in the arms and legs. Normal speech. PSYCHIATRIC: Appropriate mood and affect; insight and judgment normal. A/P Acute on chronic CHF improving. Cardiology has been consulted. Plan for stress test possibly today. Continue current plan and diuretics. Pacemaker failure -- Dr. Baig to determine timing of procedure. Chronic medical issues -- continue the current treatment plan. Patient seen and dw the resident team -- Dr. Pereyra, Dr. Kat
--- NOTE | 2018-08-26 10:58 | ECHRPT ---
Indication: Heart Failure CONCLUSIONS Normal left ventricular size. Wall thickness is normal. ly reduced with an estimated ejection fraction in the range of 25-30%. Posterior wall is scarred and akinetic.A pacemaker wire is noted. The right ventricle is mildly dilated. The left atrial size is mildly dilated. Normal atrial septal thickness. Mild mitral valve regurgitation. Slight;y thickened. Mild aortic valve regurgitation. There is moderate tricuspid regurgitation. The estimated pulmonary arterial pressure is 34 mmHg. The inferior vena cava was not well visualized. BP: / HR: Rhythm: MEASUREMENTS (Male / Female) Normal Values Technical Quality:Fair 2D ECHO LV Diastolic Diameter PLAX 5.5 cm 4.2 - 5.9 / 3.9 - 5.3 cm LV Systolic Diameter PLAX 4.6 cm IVS Diastolic Thickness 0.9 cm 0.6 - 1.0 / 0.6 - 0.9 cm LVPW Diastolic Thickness 0.9 cm 0.6 - 1.0 / 0.6 - 0.9 cm LV Relative Wall Thickness 0.3 RV Internal Dim ED PLAX 4.0 cm LVOT Diameter 1.9 cm Aortic Root Diameter 2.6 cm LA Systolic Diameter LX 4.3 cm 3.0 - 4.0 / 2.7 - 3.8 cm M-MODE AV Cusp Separation MM 1.7 cm DOPPLER AV Peak Velocity 115.0 cm/s AV Peak Gradient 5.3 mmHg LVOT Peak Velocity 92.7 cm/s LVOT Peak Gradient 3.4 mmHg AV Area Cont Eq pk 2.3 cm MV Peak Velocity 172.0 cm/s MV Peak Gradient 11.8 mmHg MV Mean Velocity 92.8 cm/s MV Mean Gradient 4.0 mmHg Mitral E Point Velocity 147.0 cm/s Mitral A Point Velocity 84.5 cm/s Mitral E to A Ratio 1.7 LV E' Lateral Velocity 7.1 cm/s Mitral E to LV E' Lateral Ratio 20.6 LV E' Septal Velocity 6.5 cm/s Mitral E to LV E' Septal Ratio 22.5 TR Peak Velocity 244.0 cm/s TR Peak Gradient 23.8 mmHg Right Atrial Pressure 10.0 mmHg Pulmonary Artery Systolic Pressu 33.8 mmHg Right Ventricular Systolic Press 33.8 mmHg PV Peak Velocity 84.2 cm/s PV Peak Gradient 2.8 mmHg FINDINGS LEFT VENTRICLE Normal left ventricular size. Wall thickness is normal. ly reduced with an estimated ejection fraction in the range of 25-30%. Posterior wall is scarred and akinetic. RIGHT VENTRICLE A pacemaker wire is noted. The right ventricle is mildly dilated. LEFT ATRIUM The left atrial size is mildly dilated. RIGHT ATRIUM The right atrial size is normal. ATRIAL SEPTUM Normal atrial septal thickness. AORTA The aortic root and proximal ascending aorta are normal in size on limited imaging. MITRAL VALVE Mild mitral valve regurgitation. AORTIC VALVE Trileaflet aortic valve. Slight;y thickened. Mild aortic valve regurgitation. TRICUSPID VALVE There is moderate tricuspid regurgitation. The estimated pulmonary arterial pressure is 34 mmHg. PULMONARY VALVE No pulmonary valve regurgitation or stenosis. VESSELS The inferior vena cava was not well visualized. PERICARDIUM No pericardial effusion. Jose Harris MD (Electronically Signed) Final Date:26 August 2018 10:56
[2018-08-26] MEDS: Heparin Drip 25,000 UNIT/250 ML BAG IV.CONT PRN (14:31)
[2018-08-26 17:25] LABS: % Iron Saturation 4.9 % (20-50)
--- NOTE | 2018-08-26 19:59 | MB ---
cc: Jose Harris MD DATE: 08/26/2018 REASON FOR CONSULTATION: Evaluation of chest pain. HISTORY OF PRESENT ILLNESS: The patient is a complicated 78-year-old man who has multiple cardiac risk factors. He was seen in the office by Dr. Baig with a fracture of his right ventricular lead. He has a known biventricular defibrillator with an ischemic cardiomyopathy. The patient complains of chest pain. He is extremely vague. He cannot tell me the quality of the pain. He cannot tell me how long it lasted. He cannot tell me when it started. He cannot tell me what makes it better or what makes it worse. Seems to have it more at night. He has shortness of breath at night. He has been to multiple other doctors before. We know that he has known coronary artery disease. From what I gather, he had open heart bypass surgery in 2008. He had a mitral valve repair and a saphenous vein graft to the circumflex marginal branch. I do have records, and on 10/06/2017 he underwent bare metal stenting of the LAD. The LAD was totally occluded at that time. He had a 2.5 x 28 mm Rebel stent, I think in the mid LAD, and a 3.0 x 16 mm stent just proximal to that. The patient was going to have a stress to do this test today but he ate, so the stress test is being planned for tomorrow. The patient has shortness of breath with exertion. He was taken care of by a doctor in the [facility] and I guess referred to Dr. Baig for an ablation. PAST MEDICAL HISTORY: Includes hypertension, diabetes, obesity, hyperlipidemia, [employer] biventricular defibrillator, previous autoimmune thrombocytopenia, benign prostatic hypertrophy, hypothyroidism, previous atrial fibrillation with failed ablation in the past. I am not sure if that was atrial fibrillation or atrial flutter. Known cardiomyopathy, carotid disease, CHF, previous deep vein thrombosis, although the patient cannot confirm that, but it is in his records. A previous GI bleed about 8 months ago with a negative upper and lower endoscopy, and currently has a microcytic anemia. ALLERGIES: NONE KNOWN. FAMILY HISTORY: Positive for atrial fibrillation and cancer. SOCIAL HISTORY: He is . 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 He is an ex-smoker. He lives alone. He has 2 children living in [place]. MEDICATIONS PRIOR TO ADMISSION: Include: 1. Aspirin. 2. Atorvastatin. 3. Bumex. 4. Entresto. 5. Iron. 6. Levothyroxine. 7. Metformin. 8. Tamsulosin. 9. Xarelto. He is off Xarelto and on IV heparin at the current time. PHYSICAL EXAMINATION: GENERAL: Shows a well-developed, obese man in no acute distress. VITAL SIGNS: Charted. HEENT: Unremarkable. NECK: Shows mild jugular venous distention. CHEST: Shows a few bibasilar crackles. CARDIAC: S1, S2, regular rate and rhythm. I could not appreciate a murmur. Soft S3 gallops heard. ABDOMEN: Obese, soft, nontender. EXTREMITIES: good femoral pulses. There is 1+ edema. There are reduced pedal pulses, particularly in the right foot. The patient does complain of pain when he is walking, but other review of systems were negative. ASSESSMENT: A 78-year-old man with an ischemic cardiomyopathy. He has shortness of breath and probably has had mildly decompensated CHF. He is currently on IV Bumex. He has chest pain. He has a history of dementia and his chest pain history is completely useless for me to sort out whether he is having true ischemia or not. RECOMMENDATIONS: I would agree with getting a nuclear stress test. He may end up needing a heart catheterization, but I also need to check iron levels and he probably needs intravenous iron because his MCV is low and his hematocrit is low. This will complicate anything that we try to do interventionally. He is very complicated at this point. Further therapy to be determined. MD ACOSTA Russell/amauri , 04:17 PM , 04:25 PM
--- NOTE | 2018-08-26 20:59 | ECG ---
Date Performed: 08/25/2018 Time Performed: 12:16:25 PTAGE: 78 years EKG: Sinus rhythm with p-wave synchronous biventricular pacing ABNORMAL RHYTHM ECG NO PREVIOUS TRACING DOCTOR: Jose Harris Interpretating Date/Time 08/26/2018 20:58:10
--- NOTE | 2018-08-26 20:59 | ECG ---
Date Performed: 08/25/2018 Time Performed: 22:08:38 PTAGE: 78 years EKG: Sinus rhythm with p-wave synchronous biventricular pacing Since the previous tracing, no significant change noted ABNORMAL ECG PREVIOUS TRACING : 08/25/2018 12.16 DOCTOR: Jose Harris Interpretating Date/Time 08/26/2018 20:58:23
--- NOTE | 2018-08-26 20:59 | ECG ---
Date Performed: 08/26/2018 Time Performed: 01:10:42 PTAGE: 78 years EKG: Sinus rhythm with p-wave synchronous biventricular pacing Since the previous tracing, no significant change noted Abnormal ECG PREVIOUS TRACING : 08/25/2018 22.08 DOCTOR: Jose Harris Interpretating Date/Time 08/26/2018 20:58:30
[2018-08-27 07:01] LABS: Hematocrit 30.5 % (39.0-51.0); Hemoglobin 9.5 gm/dL (13.0-17.0); Mean Corpuscular HGB Conc 31.2 % (32.0-36.0); Mean Corpuscular Hemoglobin 23.3 pg (27.0-34.0); Mean Corpuscular Volume 74.8 fL (80.0-100.0); Mean Platelet Volume 11.9 fL (7.0-11.0); Platelet Count 136 th/mm3 (150-450); Red Blood Count 4.08 mil/mm3 (4.50-5.90); Red Cell Distribution Width 27.8 % (11.6-17.2); White Blood Count 3.8 th/mm3 (4.0-11.0)
[2018-08-27 07:26] LABS: Carbon Dioxide 24.2 meq/L (21.0-32.0); Potassium 3.7 meq/L (3.5-5.1)
[2018-08-27 09:07] LABS: % Iron Saturation 5.5 % (20-50)
[2018-08-27] MEDS: Ferrous Sulfate 325 MG Tablet PO SCH (09:15)
[2018-08-27] MEDS: Insulin NovoLOG Aspart Correctional Sugar Inj SQ SCH ×4 (09:16→21:26)
--- NOTE | 2018-08-27 10:21 | P.PNFP ---
Subjective Interval history: No acute events overnight. Patient states his breathing is better today and he has no complaints. Denies any chest pain, shortness of breath, abdominal pain. Patient is concerned about the timing of any procedures moving forward as he would like his son who lives in [place] to be present for any type of surgeries. <Stanislav Rothman B - 08/27/18 11:46> Results - Labs Result diagrams: 08/28/18 01:10 08/28/18 01:10 <Safia Parker R - 08/28/18 10:17> Abnormal lab results 08/26/18 08/27/18 08/27/18 Range/Units 10:20 19:20 21:23 RBC (4.50-5.90) mil/mm3 Hgb (13.0-17.0) gm/dL Hct (39.0-51.0) % MCV (80.0-100.0) fL MCH (27.0-34.0) pg MCHC (32.0-36.0) % RDW (11.6-17.2) % Plt Count (150-450) th/mm3 APTT 43.4 H (23.4-31.7) sec BUN (7-18) mg/dL Estimated GFR (>89) mL/min POC Glucose 161 H (68-110) mg/dl Random Glucose (74-106) mg/dL Hemoglobin A1c 6.1 H (4.3-6.0) % Calcium (8.5-10.1) mg/dL 08/28/18 08/28/18 08/28/18 Range/Units 01:10 01:10 01:10 RBC 4.38 L (4.50-5.90) mil/mm3 Hgb 10.0 L (13.0-17.0) gm/dL Hct 33.8 L (39.0-51.0) % MCV 77.1 L (80.0-100.0) fL MCH 22.9 L (27.0-34.0) pg MCHC 29.7 L (32.0-36.0) % RDW 27.8 H (11.6-17.2) % Plt Count 123 L (150-450) th/mm3 APTT 41.5 H (23.4-31.7) sec BUN 22 H (7-18) mg/dL Estimated GFR 81 L (>89) mL/min POC Glucose (68-110) mg/dl Random Glucose 108 H (74-106) mg/dL Hemoglobin A1c (4.3-6.0) % Calcium 7.9 L (8.5-10.1) mg/dL Short CBC 08/28/18 Range/Units 01:10 WBC 4.0 (4.0-11.0) th/mm3 Hgb 10.0 L (13.0-17.0) gm/dL Hct 33.8 L (39.0-51.0) % Plt Count 123 L (150-450) th/mm3 BMP 08/28/18 01:10 Sodium 140 Potassium 4.0 Chloride 107 Carbon Dioxide 23.0 BUN 22 H Creatinine 0.91 Calcium 7.9 L <Safia Parker - 08/28/18 10:17> Abnormal lab results 08/26/18 08/26/18 08/26/18 Range/Units 04:01 10:20 20:13 WBC (4.0-11.0) th/mm3 RBC (4.50-5.90) mil/mm3 Hgb (13.0-17.0) gm/dL Hct (39.0-51.0) % MCV (80.0-100.0) fL MCH (27.0-34.0) pg MCHC (32.0-36.0) % RDW (11.6-17.2) % Plt Count (150-450) th/mm3 MPV (7.0-11.0) fL APTT 42.7 H (23.4-31.7) sec BUN (7-18) mg/dL Estimated GFR (>89) mL/min POC Glucose 146 H (68-110) mg/dl Calcium (8.5-10.1) mg/dL Iron 19 L (65-175) mcg/dL % Saturation 4.9 L (20-50) % B-Natriuretic Peptide (0-100) pg/mL 08/27/18 08/27/18 08/27/18 Range/Units 05:57 05:57 05:57 WBC 3.8 L (4.0-11.0) th/mm3 RBC 4.08 L (4.50-5.90) mil/mm3 Hgb 9.5 L (13.0-17.0) gm/dL Hct 30.5 L (39.0-51.0) % MCV 74.8 L (80.0-100.0) fL MCH 23.3 L (27.0-34.0) pg MCHC 31.2 L (32.0-36.0) % RDW 27.8 H (11.6-17.2) % Plt Count 136 L (150-450) th/mm3 MPV 11.9 H (7.0-11.0) fL APTT (23.4-31.7) sec BUN 30 H (7-18) mg/dL Estimated GFR 69 L (>89) mL/min POC Glucose (68-110) mg/dl Calcium 8.0 L (8.5-10.1) mg/dL Iron (65-175) mcg/dL % Saturation (20-50) % B-Natriuretic Peptide 318 H (0-100) pg/mL 08/27/18 08/27/18 Range/Units 05:57 05:57 WBC (4.0-11.0) th/mm3 RBC (4.50-5.90) mil/mm3 Hgb (13.0-17.0) gm/dL Hct (39.0-51.0) % MCV (80.0-100.0) fL MCH (27.0-34.0) pg MCHC (32.0-36.0) % RDW (11.6-17.2) % Plt Count (150-450) th/mm3 MPV (7.0-11.0) fL APTT 38.6 H (23.4-31.7) sec BUN (7-18) mg/dL Estimated GFR (>89) mL/min POC Glucose (68-110) mg/dl Calcium (8.5-10.1) mg/dL Iron 21 L (65-175) mcg/dL % Saturation 5.5 L (20-50) % B-Natriuretic Peptide (0-100) pg/mL Short CBC 08/27/18 Range/Units 05:57 WBC 3.8 L (4.0-11.0) th/mm3 Hgb 9.5 L (13.0-17.0) gm/dL Hct 30.5 L (39.0-51.0) % Plt Count 136 L (150-450) th/mm3 BMP 08/27/18 05:57 Sodium 140 Potassium 3.7 Chloride 106 Carbon Dioxide 24.2 BUN 30 H Creatinine 1.04 Calcium 8.0 L <Stanislav Rothman B - 08/27/18 10:21> - Imaging Impressions Myocardial Perfusion Scan Nuc Med 08/27/18 00:00 CONCLUSION: 1. Large fixed perfusion abnormality or turcica myocardial infarction 2. Severe wall motion abnormality with decreased ejection fraction measuring 28 % 3. No specific evidence of stressed induced reversible perfusion abnormality. <Safia Parker R - 08/28/18 10:17> Physical Exam Vital signs: Vital Signs 08/27/18 12:00 08/27/18 16:00 08/27/18 20:00 Temperature 98.1 F 98.0 F 98 F Pulse Rate 77 76 77 Respiratory Rate 18 18 15 Blood Pressure 104/59 L 106/60 100/52 L Pulse Oximetry 98 98 95 08/27/18 20:56 08/28/18 00:00 08/28/18 04:00 Temperature 97.8 F 97.6 F Pulse Rate 85 81 75 Respiratory Rate 14 14 Blood Pressure 98/58 L 90/53 L Pulse Oximetry 94 L 98 08/28/18 08:00 Temperature 97.7 F Pulse Rate 76 Respiratory Rate 17 Blood Pressure 100/51 L Pulse Oximetry 98 Intake & Output 08/27/18 08/28/18 08/28/18 18:59 06:59 18:59 Intake Total 430 / 430 154 / 154 Output Total 1300 / 1300 400 / 400 Balance -870 / -870 -246 / -246 Weight 98.9 kg Intake: IV 190 / 190 154 / 154 Heparin/D5W 25,000 U/250 mL 25, 80 / 80 154 / 154 000 unit In 250 ml @ Per Protocol IV.CONT TITRATE PRN Rx #:[id number] Venofer Inj 200 MG In NS Inj 110 / 110 100 ML @ 110 mls/hr IV.SIG DAILY EL[facility] Rx#:[id number] Oral 240 / 240 Output: Urine 1300 / 1300 400 / 400 Other: # Bowel Movements 1 <Safia Parker R - 08/28/18 10:17> Vital Signs 08/26/18 12:00 08/26/18 16:00 08/26/18 20:00 Temperature 97.9 F 97.6 F 98.1 F Pulse Rate 81 82 74 Respiratory Rate 13 14 15 Blood Pressure 104/60 138/63 90/48 L Pulse Oximetry 99 100 94 L 08/27/18 00:00 08/27/18 00:23 08/27/18 04:00 Temperature 98.3 F 98.4 F Pulse Rate 75 93 H 73 Respiratory Rate 16 18 Blood Pressure 112/53 L 90/51 L Pulse Oximetry 97 95 08/27/18 08:00 Temperature 97.7 F Pulse Rate 74 Respiratory Rate 19 Blood Pressure 100/57 L Pulse Oximetry 98 Intake & Output 08/26/18 08/27/18 08/27/18 18:59 06:59 18:59 Intake Total 480 / 480 270 / 270 Balance 480 / 480 270 / 270 Weight 99.9 kg Intake: IV 0 / 0 170 / 170 Heparin/D5W 25,000 U/250 mL 25, 0 / 0 170 / 170 000 unit In 250 ml @ Per Protocol IV.CONT TITRATE PRN Rx #:[id number] Oral 480 / 480 100 / 100 Other: # Voids 3 3 <Stanislav Rohtman B - 08/27/18 10:21> Narrative: GENERAL: Well-developed male of stated age sitting up in bed, not in acute respiratory distress SKIN: Warm and dry. Transverse scar from pacemaker placement on left anterior chest, laparoscopic scars present on abdomen HEAD: Atraumatic. Normocephalic. EYES: Pupils equal and round. No scleral icterus. No injection or drainage. ENT: No nasal bleeding or discharge. Mucous membranes pink and moist. NECK: Trachea midline. No JVD. CARDIOVASCULAR: Regular rate and rhythm, no murmurs appreciated. RESPIRATORY: Clear to auscultation bilaterally with no crackles appreciated on today's exam. Diminished breath sounds on the left, normal aeration on the right. GASTROINTESTINAL: Abdomen soft, non-tender, nondistended. Hepatic and splenic margins not palpable. MUSCULOSKELETAL: Extremities without clubbing, cyanosis, or edema. No obvious deformities. 1+ pitting edema to the level of the tibial plateau, improved from prior exam. NEUROLOGICAL: Awake and alert. No obvious cranial nerve deficits. Motor grossly within normal limits. Five out of 5 muscle strength in the arms and 4/5 strength in the legs. PSYCHIATRIC: Appropriate mood and affect; insight and judgment normal. <Stanislav Rothman B - 08/27/18 11:46> Assessment and Plan - Assessment (1) Acute exacerbation of CHF (congestive heart failure) Code(s): I50.9 - Heart failure, unspecified Status: Acute (2) Unstable angina Code(s): I20.0 - Unstable angina Status: Acute (3) Pacemaker failure Code(s): T82.118A - Breakdown (mechanical) of other cardiac electronic device, initial encounter Status: Acute (4) Diabetes mellitus type 2 in obese Code(s): E11.69 - Type 2 diabetes mellitus with other specified complication; E66.9 - Obesity, unspecified Status: Acute (5) Hypertension Code(s): I10 - Essential (primary) hypertension Status: Acute (6) Hypothyroidism Code(s): E03.9 - Hypothyroidism, unspecified Status: Acute (7) Anemia Code(s): D64.9 - Anemia, unspecified Status: Acute (8) Thrombocytopenia Code(s): D69.6 - Thrombocytopenia, unspecified Status: Acute <Safia Parker R - 08/28/18 10:17> (1) Acute exacerbation of CHF (congestive heart failure) Code(s): I50.9 - Heart failure, unspecified Status: Acute (2) Unstable angina Code(s): I20.0 - Unstable angina Status: Acute (3) Pacemaker failure Code(s): T82.118A - Breakdown (mechanical) of other cardiac electronic device, initial encounter Status: Acute (4) Diabetes mellitus type 2 in obese Code(s): E11.69 - Type 2 diabetes mellitus with other specified complication; E66.9 - Obesity, unspecified Status: Acute (5) Hypertension Code(s): I10 - Essential (primary) hypertension Status: Acute (6) Hypothyroidism Code(s): E03.9 - Hypothyroidism, unspecified Status: Acute (7) Anemia Code(s): D64.9 - Anemia, unspecified Status: Acute (8) Thrombocytopenia Code(s): D69.6 - Thrombocytopenia, unspecified Status: Acute <Stanislav Rothman Rajan - 08/27/18 11:36> - Assessment and Plan 78-year-old male presents with unstable angina and CHF exacerbation with pulmonary edema seen on chest x-ray. He will be admitted for diuresis and ACS rule out. He is scheduled to have a nuclear stress test on 08/27. Cardiology has been consulted to assist with management. CHF exacerbation * Chest x-ray on admission shows pulmonary edema * BNP elevated at 442 on admission, downtrending * Bumex 1 mg IV twice daily * Continue Entresto at current dose * Strict I's and O's * Fluid restrict to 1.5 L daily * Improving clinically on day 1 of hospitalization Unstable angina * ACS workup was negative * Received aspirin 162 mg in the ED, patient takes 81 mg daily * Continue aspirin 81 mg * Heparin drip per Dr. aBig * Cardiology consult pending-appreciate recommendations Pacemaker fracture * Dr. Baig is aware of patient in the hospital and plans to repair his pacemaker after he has been evaluated for angina and adequately diuresed Anemia * H/H 9.6/30.9 -stable * On iron supplementation at home * Monitor closely * Iron studies showing iron of 21, cardiology considering iron transfusion Thrombocytopenia * Mildly thrombocytopenic at 149 -stable * Will monitor closely due to patient currently being on heparin Diabetes type 2 * Hold metformin * Accu-Cheks with low-dose sliding scale insulin Hypertension * BP elevated to the 180s systolic on admission but now normotensive * Borderline hypotensive * Consider clonidine for SBP > 180 or DBP >100 Hypothyroidism * Continue home dose of levothyroxine 300 mg Tuesday through Tuesday and 200 mg Tuesday and Tuesday * Check TSH and free T4 DVT prophylaxis: On heparin drip * Continue home Xarelto when heparin drip is discontinued FEN * Oral fluids only, restrict to 1.5 L * Will monitor electrolytes and replace as needed, watch for hypokalemia on Bumex * Cardiac diet <Stanislav Rothman B - 08/27/18 11:46> - Attending Attestation Patient dw the resident team. Agree with assessment and plan <Safia Parker - 08/28/18 10:17>
[2018-08-27] MEDS ORDERED: Regadenoson Inj 0.4 MG/5 ML Syringe IV.PUSH ONE (11:23)
[2018-08-27 12:03] LABS: Hemoglobin A1c 6.1 % (4.3-6.0)
--- NOTE | 2018-08-27 12:26 | NM ---
EXAM DATE: 08/27/2018 12:17 PM EST AGE/SEX: 78 years / Male INDICATIONS:Angina. Atrial fibrillation Left sided chest pain with shortness of breath for one day. CLINICAL DATA: This is the patient's initial encounter. Patient reports that signs and symptoms have been present for 1 day and indicates a pain score of 4/10. MEDICAL/SURGICAL HISTORY: Cardiovascular disease. Congestive heart failure. Hypertension. Pac emaker. CABG. COMPARISON: No prior exams available for comparison. No external comparison. DOSE: 10.0 mCi Tc 99m Myoview at rest 31.1 mCi Kw50q-Vlptizz at stress 0.4 mg Lexiscan STRESS SYMPTOMS: None. EJECTION FRACTION: 28 % TECHNIQUE: The patient underwent pharmacologic stress with infusion of prescribed dose. Continuous ECG tracing was monitored during stress. Gated SPECT imaging was performed after stress and conventi onal SPECT imaging was performed at rest. The examination was performed on a SPECT/CT scanner, both attenuation and non-corrected datasets were reviewed. FINDINGS: Distribution: The maximum perfused segment at stress is in the inferior wall. Perfusion Study: A large fixed perfusion abnormality involving the anterior wall, apex and lateral wall is identified. There are no stress-induced reversible perfusion abnormalities. Gated Study: Severe wall motion abnormality is identified corresponding to the large area of perfusi on abnormality there is severe hypokinesia and paradoxical dyskinetic motion. The ejection fraction is calculated at 28%. RISK CATEGORY: High (>3% Annual Morality Rate) CONCLUSION: 1. Large fixed perfusion abnormality or turcica myocardial infarction 2. Severe wall motion abnormality with decreased ejection fraction measuring 28% 3. No specific evidence of stressed induced reversible perfusion abnormality. Electronically signed by: Heriberto Dasilva MD 08/27/2018 12:24 PM EST
[2018-08-27] MEDS: Iron Sucrose Inj 200 MG in Sodium Chlor 0.9% Inj 100 ML IV.SIG SCH (14:27)
--- NOTE | 2018-08-27 16:27 | P.PNCA ---
Subjective Interval history: Less SOB, no chest pain Medications and Allergies Active Medications: Active Medications Acetaminophen (Tylenol) 650 mg PO Q4H PRN PRN Reason: Temp > 100.4 Aspirin (Ecotrin) 81 mg PO DAILY [facility] Last Admin: 08/27/18 09:16 Dose: 81 mg Atorvastatin Calcium (Lipitor) 40 mg PO DAILY [facility] Last Admin: 08/27/18 09:15 Dose: 40 mg Bumetanide (Bumex Inj) 1 mg IV.PUSH BID@0900,1800 [facility] Last Admin: 08/27/18 09:16 Dose: 1 mg Dextrose (D50w Vial) 50 ml IV.PUSH UNSCH PRN PRN Reason: PER HYPOGLYCEMIA PROTOCOL Diphenhydramine HCl (Benadryl) 25 mg PO ONCE PRN PRN Reason: ITCHING/HIVES/ANAPHYLAXIS Last Admin: 08/26/18 16:14 Dose: 25 mg Diphenhydramine HCl (Benadryl) 25 mg PO Q6H PRN PRN Reason: ITCHING AND/OR RASH Last Admin: 08/26/18 06:53 Dose: 25 mg Ferrous Sulfate (Ferosul) 325 mg PO DAILY [facility] Last Admin: 08/27/18 09:15 Dose: 325 mg Glucagon (Glucagon Inj) 1 mg OTHER UNSCH PRN PRN Reason: for Hypoglycemia Protocol Heparin Sodium/Dextrose (Heparin/D5w 25,000 U/250 Ml) 25,000 unit in 250 mls @ 0 mls/hr IV.CONT TITRATE PRN; Protocol PRN Reason: Per Protocol Last Titration: 08/27/18 13:25 Dose: 1,200 units/hr, 12 mls/hr Iron Sucrose 200 mg/ Sodium (Chloride) 110 mls @ 110 mls/hr IV.SIG DAILY [facility] Stop: 08/29/18 09:59 Last Admin: 08/27/18 14:27 Dose: 110 mls/hr Insulin Aspart (Novolog Insulin Correctional Sugar Inj) 0 unit SQ ACHS [facility]; Protocol Last Admin: 08/27/18 13:27 Dose: Not Given Levothyroxine Sodium (Synthroid) 200 mcg PO MoTuWeThFr@0600 [facility] Levothyroxine Sodium (Synthroid) 300 mcg PO SuSa@0600 [facility] Last Admin: 08/27/18 06:07 Dose: 300 mcg Morphine Sulfate (Morphine Inj) 2 mg IV.PUSH Q4H PRN PRN Reason: PAIN SCALE 6 TO 10 Ondansetron HCl (Zofran Inj) 4 mg IV.PUSH Q6H PRN PRN Reason: NAUSEA Potassium Chloride (K-Dur) 20 meq PO BID [facility] Sacubitril/Valsartan (Entresto 24 Mg/26 Mg Tablet) 1 tab PO BID [facility] Last Admin: 08/27/18 09:15 Dose: 1 tab Senna/Docusate Sodium (Siomara-Colace) 1 tab PO BID PRN PRN Reason: CONSTIPATION Sodium Chloride (Ns Flush) 2 ml IV.FLUSH BID [facility] Last Admin: 08/27/18 09:17 Dose: 2 ml Sodium Chloride (Ns Flush) 2 ml IV.FLUSH UNSCH PRN PRN Reason: FLUSH AFTER USING IV ACCESS Tamsulosin HCl (Flomax) 0.4 mg PO DAILY [facility] Last Admin: 08/27/18 09:15 Dose: 0.4 mg Torsemide (Demadex) 20 mg PO DAILY [facility] Allergies Allergy/AdvReac Type Severity Reaction Status Date / Time No Known Allergies Allergy Verified 08/25/18 12:07 Home Medications Medication Instructions Recorded Confirmed Type aspirin 81 mg PO DAILY 08/25/18 08/25/18 History atorvastatin 20 mg PO DAILY 08/25/18 08/25/18 History bumetanide 1 mg PO BID 08/25/18 08/25/18 History ferrous sulfate [iron] 325 mg PO DAILY 08/25/18 08/25/18 History levothyroxine 200 mcg PO 5XW 08/25/18 08/25/18 History levothyroxine 300 mcg PO 2XWEEK 08/25/18 08/25/18 History metformin 1,000 mg PO BID 08/25/18 08/25/18 History rivaroxaban [Xarelto] 20 mg PO DAILY 08/25/18 08/25/18 History sacubitril-valsartan [Entresto] 1 tab PO BID 08/25/18 08/25/18 History tamsulosin 0.4 mg PO DAILY 08/25/18 08/25/18 History Physical Exam Vital signs: Vital Signs 08/26/18 20:00 08/27/18 00:00 08/27/18 00:23 Temperature 98.1 F 98.3 F Pulse Rate 74 75 93 H Respiratory Rate 15 16 Blood Pressure 90/48 L 112/53 L Pulse Oximetry 94 L 97 08/27/18 04:00 08/27/18 08:00 08/27/18 12:00 Temperature 98.4 F 97.7 F 98.1 F Pulse Rate 73 74 77 Respiratory Rate 18 19 18 Blood Pressure 90/51 L 100/57 L 104/59 L Pulse Oximetry 95 98 98 Intake & Output 08/26/18 08/27/18 08/27/18 18:59 06:59 18:59 Intake Total 480 / 480 270 / 270 50 / 50 Balance 480 / 480 270 / 270 50 / 50 Weight 99.9 kg Intake: IV 0 / 0 170 / 170 50 / 50 Heparin/D5W 25,000 U/250 mL 25, 0 / 0 170 / 170 50 / 50 000 unit In 250 ml @ Per Protocol IV.CONT TITRATE PRN Rx #:[id number] Oral 480 / 480 100 / 100 Other: # Voids 3 3 Narrative: GENERAL: Well-developed male of stated age sitting up in bed, not in acute respiratory distress SKIN: Warm and dry. Transverse scar from pacemaker placement on left anterior chest, laparoscopic scars present on abdomen HEAD: Atraumatic. Normocephalic. EYES: Pupils equal and round. No scleral icterus. No injection or drainage. ENT: No nasal bleeding or discharge. Mucous membranes pink and moist. NECK: Trachea midline. No JVD. CARDIOVASCULAR: Nl S1S2 RRR. No S3 I can hear RESPIRATORY: Clear to auscultation bilaterally with no crackles appreciated on today's exam. Diminished breath sounds on the left, normal aeration on the right. GASTROINTESTINAL: Abdomen soft, non-tender, nondistended. MUSCULOSKELETAL: Extremities without clubbing, cyanosis, or edema. No obvious deformities. trace pitting edema to the level of the tibial plateau, improved from prior exam. NEUROLOGICAL: Awake and alert. No obvious cranial nerve deficits. Motor grossly within normal limits. Five out of 5 muscle strength in the arms and 4/5 strength in the legs. PSYCHIATRIC: Appropriate mood and affect; insight and judgment normal. Results 08/27/18 05:57 08/27/18 05:57 Cardiac Enzymes 08/25/18 08/26/18 08/26/18 Range/Units 19:08 01:00 04:01 AST (15-37) U/L Troponin I Less than 0.02 L Less than 0.02 L (0.02-0.05) ng/mL B-Natriuretic Peptide 400 H (0-100) pg/mL 08/26/18 08/27/18 Range/Units 04:01 05:57 AST 30 (15-37) U/L Troponin I (0.02-0.05) ng/mL B-Natriuretic Peptide 318 H (0-100) pg/mL Coagulation 08/25/18 08/26/18 08/26/18 Range/Units 19:08 04:01 04:01 APTT 32.5 H 40.8 H D (23.4-31.7) sec B-Natriuretic Peptide 400 H (0-100) pg/mL 08/26/18 08/27/18 08/27/18 Range/Units 10:20 05:57 05:57 APTT 42.7 H 38.6 H (23.4-31.7) sec B-Natriuretic Peptide 318 H (0-100) pg/mL Lipids 08/25/18 Range/Units 19:08 Triglycerides 39 L (42-150) mg/dL Cholesterol 71 L (120-200) mg/dL HDL Cholesterol 28.1 L (40.0-60.0) mg/dL Cholesterol/HDL Ratio 2.52 Ratio CBC 08/26/18 08/27/18 Range/Units 04:01 05:57 WBC 4.4 3.8 L (4.0-11.0) th/mm3 RBC 3.79 L 4.08 L (4.50-5.90) mil/mm3 Hgb 9.0 L 9.5 L (13.0-17.0) gm/dL Hct 28.6 L 30.5 L (39.0-51.0) % Plt Count 123 L 136 L (150-450) th/mm3 Comprehensive Metabolic Panel 08/26/18 08/27/18 Range/Units 04:01 05:57 Sodium 138 140 (136-145) meq/L Potassium 3.9 3.7 (3.5-5.1) meq/L Chloride 104 106 (98-107) meq/L Carbon Dioxide 25.2 24.2 (21.0-32.0) meq/L BUN 32 H 30 H (7-18) mg/dL Creatinine 0.96 1.04 (0.60-1.30) mg/dL Calcium 8.1 L 8.0 L (8.5-10.1) mg/dL AST 30 (15-37) U/L ALT 29 (12-78) U/L Alkaline Phosphatase 127 H (45-117) U/L Total Protein 7.9 (6.4-8.2) g/dL Albumin 3.2 L (3.4-5.0) g/dL Intake and Output 08/27/18 08/27/18 08/27/18 06:59 14:59 22:59 Intake Total 270 / 270 50 / 50 Balance 270 / 270 50 / 50 Intake: IV 170 / 170 50 / 50 Heparin/D5W 25,000 U/250 mL 25, 170 / 170 50 / 50 000 unit In 250 ml @ Per Protocol IV.CONT TITRATE PRN Rx #:[id number] Oral 100 / 100 Other: # Voids 3 Weight 99.9 kg - Imaging and Cardiology Imaging: Impressions Chest X-Ray 08/26/18 14:11 CONCLUSION: Central interstitial vascular prominence which may represent mild congestion. No evidence of acute airspace disease. Otherwise stable chest Myocardial Perfusion Scan Nuc Med 08/27/18 00:00 CONCLUSION: 1. Large fixed perfusion abnormality or turcica myocardial infarction 2. Severe wall motion abnormality with decreased ejection fraction measuring 28 % 3. No specific evidence of stressed induced reversible perfusion abnormality. Assessment and Plan - Assessment (1) Acute on chronic systolic and diastolic heart failure, NYHA class 3 Code(s): I50.43 - Acute on chronic combined systolic (congestive) and diastolic (congestive) heart failure Status: Acute (2) Ischemic cardiomyopathy Code(s): I25.5 - Ischemic cardiomyopathy Status: Acute (3) Pacemaker lead malfunction Code(s): T82.110A - Breakdown (mechanical) of cardiac electrode, initial encounter Status: Acute (4) Coronary artery disease Code(s): I25.10 - Atherosclerotic heart disease of [place] coronary artery without angina pectoris Status: Acute - Plan CHF is much improved. Change diuretic to PO tomorrow. SPECT shows only fixed defects/ no ischemia, but low EF. Will hold NPO tomorrow until Dr. Baig decides on a new lead.
[2018-08-27] MEDS: Heparin Drip 25,000 UNIT/250 ML BAG IV.CONT PRN (16:32)
[2018-08-27] MEDS ORDERED: Ibuprofen 600 MG Tablet PO ONE (23:22)
[2018-08-28 01:24] LABS: Hematocrit 33.8 % (39.0-51.0); Mean Corpuscular Hemoglobin 22.9 pg (27.0-34.0); Mean Corpuscular Volume 77.1 fL (80.0-100.0); Mean Platelet Volume 10.8 fL (7.0-11.0); Platelet Count 123 th/mm3 (150-450); Red Blood Count 4.38 mil/mm3 (4.50-5.90); Red Cell Distribution Width 27.8 % (11.6-17.2)
[2018-08-28 01:28] LABS: Mean Corpuscular HGB Conc 29.7 % (32.0-36.0)
[2018-08-28 01:40] LABS: Calcium 7.9 mg/dL (8.5-10.1)
[2018-08-28] MEDS ORDERED: Torsemide 20 MG Tablet PO SCH (09:00)
[2018-08-28] MEDS: Iron Sucrose Inj 200 MG in Sodium Chlor 0.9% Inj 100 ML IV.SIG SCH (09:24)
[2018-08-28] MEDS: Ferrous Sulfate 325 MG Tablet PO SCH (09:25)
[2018-08-28] MEDS: Insulin NovoLOG Aspart Correctional Sugar Inj SQ SCH ×4 (09:26→21:20)
--- NOTE | 2018-08-28 09:38 | P.PNFP ---
Subjective Interval history: No acute events overnight. Patient tolerated the stress as well yesterday patient is currently n.p.o. awaiting Dr. Baig's recommendations on pacemaker repair. Patient denies any chest pain, shortness of breath, abdominal pain. He states his swelling in his legs is drastically improved since admission. Patient was mildly hypotensive this morning to 90/53, asymptomatic. Otherwise vitals are stable. <Stanislav Rothman B - 08/28/18 11:54> Results - Labs Result diagrams: 08/28/18 01:10 08/28/18 01:10 <Safia Parker R - 08/28/18 17:17> Abnormal lab results 08/27/18 08/27/18 08/28/18 Range/Units 19:20 21:23 01:10 RBC 4.38 L (4.50-5.90) mil/mm3 Hgb 10.0 L (13.0-17.0) gm/dL Hct 33.8 L (39.0-51.0) % MCV 77.1 L (80.0-100.0) fL MCH 22.9 L (27.0-34.0) pg MCHC 29.7 L (32.0-36.0) % RDW 27.8 H (11.6-17.2) % Plt Count 123 L (150-450) th/mm3 APTT 43.4 H (23.4-31.7) sec BUN (7-18) mg/dL Estimated GFR (>89) mL/min POC Glucose 161 H (68-110) mg/dl Random Glucose (74-106) mg/dL Calcium (8.5-10.1) mg/dL 08/28/18 08/28/18 Range/Units 01:10 01:10 RBC (4.50-5.90) mil/mm3 Hgb (13.0-17.0) gm/dL Hct (39.0-51.0) % MCV (80.0-100.0) fL MCH (27.0-34.0) pg MCHC (32.0-36.0) % RDW (11.6-17.2) % Plt Count (150-450) th/mm3 APTT 41.5 H (23.4-31.7) sec BUN 22 H (7-18) mg/dL Estimated GFR 81 L (>89) mL/min POC Glucose (68-110) mg/dl Random Glucose 108 H (74-106) mg/dL Calcium 7.9 L (8.5-10.1) mg/dL Short CBC 08/28/18 Range/Units 01:10 WBC 4.0 (4.0-11.0) th/mm3 Hgb 10.0 L (13.0-17.0) gm/dL Hct 33.8 L (39.0-51.0) % Plt Count 123 L (150-450) th/mm3 BMP 08/28/18 01:10 Sodium 140 Potassium 4.0 Chloride 107 Carbon Dioxide 23.0 BUN 22 H Creatinine 0.91 Calcium 7.9 L <Safia Parker - 08/28/18 17:17> Abnormal lab results 08/26/18 08/27/18 08/27/18 Range/Units 10:20 19:20 21:23 RBC (4.50-5.90) mil/mm3 Hgb (13.0-17.0) gm/dL Hct (39.0-51.0) % MCV (80.0-100.0) fL MCH (27.0-34.0) pg MCHC (32.0-36.0) % RDW (11.6-17.2) % Plt Count (150-450) th/mm3 APTT 43.4 H (23.4-31.7) sec BUN (7-18) mg/dL Estimated GFR (>89) mL/min POC Glucose 161 H (68-110) mg/dl Random Glucose (74-106) mg/dL Hemoglobin A1c 6.1 H (4.3-6.0) % Calcium (8.5-10.1) mg/dL 08/28/18 08/28/18 08/28/18 Range/Units 01:10 01:10 01:10 RBC 4.38 L (4.50-5.90) mil/mm3 Hgb 10.0 L (13.0-17.0) gm/dL Hct 33.8 L (39.0-51.0) % MCV 77.1 L (80.0-100.0) fL MCH 22.9 L (27.0-34.0) pg MCHC 29.7 L (32.0-36.0) % RDW 27.8 H (11.6-17.2) % Plt Count 123 L (150-450) th/mm3 APTT 41.5 H (23.4-31.7) sec BUN 22 H (7-18) mg/dL Estimated GFR 81 L (>89) mL/min POC Glucose (68-110) mg/dl Random Glucose 108 H (74-106) mg/dL Hemoglobin A1c (4.3-6.0) % Calcium 7.9 L (8.5-10.1) mg/dL Short CBC 08/28/18 Range/Units 01:10 WBC 4.0 (4.0-11.0) th/mm3 Hgb 10.0 L (13.0-17.0) gm/dL Hct 33.8 L (39.0-51.0) % Plt Count 123 L (150-450) th/mm3 BMP 08/28/18 01:10 Sodium 140 Potassium 4.0 Chloride 107 Carbon Dioxide 23.0 BUN 22 H Creatinine 0.91 Calcium 7.9 L <Stanislav Rothman - 08/28/18 09:37> - Imaging Impressions Myocardial Perfusion Scan Nuc Med 08/27/18 00:00 CONCLUSION: 1. Large fixed perfusion abnormality or turcica myocardial infarction 2. Severe wall motion abnormality with decreased ejection fraction measuring 28 % 3. No specific evidence of stressed induced reversible perfusion abnormality. <Stanislav Rothman - 08/28/18 09:37> Physical Exam Vital signs: Vital Signs 08/27/18 20:00 08/27/18 20:56 08/28/18 00:00 Temperature 98 F 97.8 F Pulse Rate 77 85 81 Respiratory Rate 15 14 Blood Pressure 100/52 L 98/58 L Pulse Oximetry 95 94 L 08/28/18 04:00 08/28/18 08:00 08/28/18 11:43 Temperature 97.6 F 97.7 F Pulse Rate 75 76 Respiratory Rate 14 17 Blood Pressure 90/53 L 100/51 L Pulse Oximetry 98 98 98 08/28/18 12:00 08/28/18 16:00 Temperature 98.0 F 98.4 F Pulse Rate 82 86 Respiratory Rate 17 17 Blood Pressure 115/56 L 123/62 Pulse Oximetry 98 96 Intake & Output 08/27/18 08/28/1808/28/18 18:59 06:59 18:59 Intake Total 430 / 430 154 / 154 206 / 206 Output Total 1300 / 1300 400 / 400 Balance -870 / -870 -246 / -246 206 / 206 Weight 98.9 kg Intake: IV 190 / 190 154 / 154 206 / 206 Heparin/D5W 25,000 U/250 mL 25, 80 / 80 154 / 154 96 / 96 000 unit In 250 ml @ Per Protocol IV.CONT TITRATE PRN Rx #:[id number] Venofer Inj 200 MG In NS Inj 110 / 110 110 / 110 100 ML @ 110 mls/hr IV.SIG DAILY ELZA Rx#:[id number] Oral 240 / 240 Output: Urine 1300 / 1300 400 / 400 Other: # Bowel Movements 1 <Safia Parker - 08/28/18 17:17> Vital Signs 08/27/18 12:00 08/27/18 16:00 08/27/18 20:00 Temperature 98.1 F 98.0 F 98 F Pulse Rate 77 76 77 Respiratory Rate 18 18 15 Blood Pressure 104/59 L 106/60 100/52 L Pulse Oximetry 98 98 95 08/27/18 20:56 08/28/18 00:00 08/28/18 04:00 Temperature 97.8 F 97.6 F Pulse Rate 85 81 75 Respiratory Rate 14 14 Blood Pressure 98/58 L 90/53 L Pulse Oximetry 94 L 98 08/28/18 08:00 Temperature 97.7 F Pulse Rate 76 Respiratory Rate 17 Blood Pressure 100/51 L Pulse Oximetry 98 Intake & Output 08/27/18 08/28/18 08/28/18 18:59 06:59 18:59 Intake Total 430 / 430 154 / 154 Output Total 1300 / 1300 400 / 400 Balance -870 / -870 -246 / -246 Weight 98.9 kg Intake: IV 190 / 190 154 / 154 Heparin/D5W 25,000 U/250 mL 25, 80 / 80 154 / 154 000 unit In 250 ml @ Per Protocol IV.CONT TITRATE PRN Rx #:[id number] Venofer Inj 200 MG In NS Inj 110 / 110 100 ML @ 110 mls/hr IV.SIG DAILY ELZA Rx#:[id number] Oral 240 / 240 Output: Urine 1300 / 1300 400 / 400 Other: # Bowel Movements 1 <Stanislav Rothman - 08/28/18 09:37> Narrative: GENERAL: Well-developed male of stated age laying flat in bed, not in acute respiratory distress SKIN: Warm and dry. Transverse scar from pacemaker placement on left anterior chest, laparoscopic scars present on abdomen HEAD: Atraumatic. Normocephalic. EYES: Pupils equal and round. No scleral icterus. No injection or drainage. ENT: No nasal bleeding or discharge. Mucous membranes pink and moist. NECK: Trachea midline. No JVD. MUSCULOSKELETAL: Extremities without clubbing, cyanosis, or edema. No obvious deformities. Trace edema, improved from prior exam CARDIOVASCULAR: Regular rate and rhythm, no murmurs appreciated. RESPIRATORY: Clear to auscultation bilaterally with no crackles appreciated on today's exam. Adequate aeration bilaterally. GASTROINTESTINAL: Abdomen soft, non-tender, nondistended. Hepatic and splenic margins not palpable. NEUROLOGICAL: Awake and alert. No obvious cranial nerve deficits. Motor grossly within normal limits. Five out of 5 muscle strength in the arms and 4/5 strength in the legs. PSYCHIATRIC: Appropriate mood and affect; insight and judgment normal. <Stanislav Rothman - 08/28/18 10:12> Assessment and Plan - Assessment (1) Acute exacerbation of CHF (congestive heart failure) Code(s): I50.9 - Heart failure, unspecified Status: Acute (2) Unstable angina Code(s): I20.0 - Unstable angina Status: Acute (3) Pacemaker failure Code(s): T82.118A - Breakdown (mechanical) of other cardiac electronic device, initial encounter Status: Acute (4) Diabetes mellitus type 2 in obese Code(s): E11.69 - Type 2 diabetes mellitus with other specified complication; E66.9 - Obesity, unspecified Status: Acute (5) Hypertension Code(s): I10 - Essential (primary) hypertension Status: Acute (6) Hypothyroidism Code(s): E03.9 - Hypothyroidism, unspecified Status: Acute (7) Anemia Code(s): D64.9 - Anemia, unspecified Status: Acute (8) Thrombocytopenia Code(s): D69.6 - Thrombocytopenia, unspecified Status: Acute <Safia Parker - 08/28/18 17:17> (1) Acute exacerbation of CHF (congestive heart failure) Code(s): I50.9 - Heart failure, unspecified Status: Acute (2) Unstable angina Code(s): I20.0 - Unstable angina Status: Acute (3) Pacemaker failure Code(s): T82.118A - Breakdown (mechanical) of other cardiac electronic device, initial encounter Status: Acute (4) Diabetes mellitus type 2 in obese Code(s): E11.69 - Type 2 diabetes mellitus with other specified complication; E66.9 - Obesity, unspecified Status: Acute (5) Hypertension Code(s): I10 - Essential (primary) hypertension Status: Acute (6) Hypothyroidism Code(s): E03.9 - Hypothyroidism, unspecified Status: Acute (7) Anemia Code(s): D64.9 - Anemia, unspecified Status: Acute (8) Thrombocytopenia Code(s): D69.6 - Thrombocytopenia, unspecified Status: Acute <Stanislav Rothman - 08/28/18 11:46> - Assessment and Plan 78-year-old male presents with unstable angina and CHF exacerbation with pulmonary edema seen on chest x-ray. He will be admitted for diuresis and ACS rule out. He is scheduled to have a nuclear stress test on 08/27. Cardiology has been consulted to assist with management. CHF exacerbation * Chest x-ray on admission shows pulmonary edema * BNP elevated at 442 on admission, downtrending * Switched to torsemide 20 mg p.o. daily by cardiology * Continue Entresto at current dose * Strict I's and O's * Fluid restrict to 1.5 L daily * Continues to improve clinically * Weight continues to down trend Unstable angina * ACS workup was negative * Received aspirin 162 mg in the ED, patient takes 81 mg daily * Continue aspirin 81 mg * Heparin drip per Dr. Baig * SPECT shows only fixed defects/ no ischemia, but low EF. Pacemaker fracture * Dr. Baig is aware of patient in the hospital -awaiting plan for pacemaker repair Anemia * H/H 9.6/30.9 -stable * On iron supplementation at home * Monitor closely * Iron studies showing iron of 21, cardiology considering iron transfusion Thrombocytopenia * Mildly thrombocytopenic at 149 -stable * Will monitor closely due to patient currently being on heparin Diabetes type 2 * Hold metformin * Accu-Cheks with low-dose sliding scale insulin Hypertension * BP elevated to the 180s systolic on admission but now normotensive * Borderline hypotensive, holding morning dose of torsemide, Flomax on 08/28 Hypothyroidism * Continue home dose of levothyroxine 300 mg Tuesday through Tuesday and 200 mg Tuesday and Tuesday DVT prophylaxis: On heparin drip * Continue home Xarelto when heparin drip is discontinued FEN * Oral fluids only, restrict to 1.5 L * Will monitor electrolytes and replace as needed, watch for hypokalemia * Cardiac diet <Stanislav Rothman B - 08/28/18 11:54> - Attending Attestation Patient seen and dw the resident team. Agree with the assessment and plan <Safia Parker - 08/28/18 17:17>
[2018-08-28] MEDS: Heparin Drip 25,000 UNIT/250 ML BAG IV.CONT PRN (12:58)
[2018-08-28] MEDS ORDERED: Lidocaine 2% Inj 50 ML Vial ONE (17:38)
[2018-08-28] MEDS ORDERED: ceFAZolin 1 GM Premix Inj 2 GM/100 ML PIGGYBACK IV.SIG ONE (17:38)
--- NOTE | 2018-08-28 18:49 | CATHPROC ---
Patient Name: Shyam Dow Study #: [id number] Initial MD: Day Baig Date of : 1940 Study Date: 08/28/2018 Cardiac Catheterization Report 08/28/2018 6:48:58 PM Financial #: [id number] 1 of 9 Patient Name: Shyam Dow Study #: [id number] Initial MD: Day Baig Date of : 1940 Study Date: 08/28/2018 Entire Case Report Patient Information Patient Name Shyam oDw Date of 1940 Age 78 years Financial # [id number] Gender M AlternateID Lab Number 6 Room Number 1428 Height (in) 67.0 Height (cm) 170.1 BSA 2.10 Weight (lbs) 217.6 Weight (kg) 98.9 Patient Address/Phone Number Home Address [facility] Home Phone Number [facility] [address] [facility] [id number] Study Information Study Number Admission Scheduled Start Study Start [id number] Aug 25 2018 2:07PM 08/28/2018 Aug 28 2018 3:54PM [place] Service Cardiac Pacer/ICD Admit Source Facility Department Other [facility] - Financial Operations Analyst Physician and Clinical Staff Initial Day Nicholson Counselor Dormitory Nu Cabrera,RN Counselor Dormitory Ashely Barker RCIS Other Anesthesia, SAUSAGE SMOKER Recorder Sofia Thrasher,BORIS Scrub Edin Webster,RT(R) Procedures Performed Procedure Lead Insertion Lead Revision 08/28/2018 6:48:58 PM Financial #: [id number] 2 of 9 Patient Name: Shyam Dow Study #: [id number] Initial MD: Day Baig Date of : 1940 Study Date: 08/28/2018 Equipment Time Knife Setter Assembler Description Size Mfg Part Number Used/Scraped [employer]/ EP LEAD, ENDOTAK RELIANCE SG 18:15 64CM 0181 Used PACER 64CM (DEFIB) DERMABOND, ADHESIVE SKIN [id number] 16:27 CORDIS/PACER * Used GLUE MINI *[id number] 17:47 IMEDICAL PLASMABLADE, PEAD 3.0S * Used *[id number] 16:27 [email or web address] BLANKET,WARM AIR CCL * Used *[id number] 16:27 [email or web address] SUTURE, STRIP PLUS 1/2" * Used *[id number] 16:27 [employer]Dove PACER TREJO, LIMB * 2530 *[id number] Used [id number] 16:27 MEDLINE PACER PACK, PACER CUSTOM * Used *[id number] 17:55 Synaptic Digital PACER SAFE SHEATH, FR9, 13CM FR 9 [id number] Used 17:57 Needle Sponge Count 1 1 Used 18:35 Needle Sponge Count 2 2 Used 18:35 Needle Sponge Count 2 22 Used 17:57 Needle Sponge Count 20 200 Used SUTURE, 0 ETHIBOND [CT1] (CX21D), 8pk SUTURE, 2-0 VICRYL [CT1] ([id number]) SUTURE, 2-0 VICRYL [CT1] ([id number]) [facility] PAD, ELECTROSURGICAL 16:27 * [id number] *[id number] Used [employer] GROUNDING ORANGE [id number] 16:27 [employer] MEDICAL DAVID. / * Used *01192 Equipment Model, Serial, Lot Number and Expiration Data Description Model Number Serial Number Lot Number Expiration Date LEAD, ENDOTAK RELIANCE SG 0181 [id number] 07-27-2018 64CM (DEFIB) Insurance Information Insurance Payor Medicare Third Libertarian Third Libertarian Number MEDICARE A B MCRAB History: Allergies Allergy Reaction No Known Allergies 08/28/2018 6:48:58 PM Financial #: [id number] 3 of 9 Patient Name: Shyam Dow Study #: [id number] Initial MD: Day Baig Date of : 1940 Study Date: 08/28/2018 History: Risk Factors Hypertension Dyslipidemia Previous Heart Failure Yes Yes Yes Diabetes Labs Hgb (g/dl) Hct (%) RBC (MIL/MM3) WBC (l/cumm) Platelets (thousands) 11.60-17.00 35.00-51.00 4.00-5.90 4.00-11.00 150.00-450.00 10.0 33 4.4 4 123 Glucose (mg/dl) BUN (mg/dl) Creatinine (mg/dl) BUN:Creatinine (1:x) 74.00-106.00 7.00-18.00 0.50-1.30 10.00-20.00 108 22 0.9 24.4 Na (meq/l) K (meq/l) 136.00-145.00 3.50-5.10 140 4 INR (PTT:PT) 0.90-1.10 1.2 Medication Medication Total Dose (Bolus/Oral) Medication Total Dosage/Unit 2% XYLOCAINE 50 mL OXYGEN 4 l/min Medications (Bolus/Oral) Medication Time Given Dosage/Unit Administered By Reason OXYGEN 08/28/2018 5:24:22 PM 4 l/min Sofia Thrasher For sedation 4 l/min OXYGEN given in lab by Sofia Thrasher RN via Nasal. Ordered by Day Baig. Reason: For s edation. 2% XYLOCAINE 08/28/2018 6:08:33 PM 50 mL Day Baig 50 mL 2% XYLOCAINE given in lab by Day Baig in Left shoulder via Subcutaneous. Ordered by Day Baig. 08/28/2018 6:48:58 PM Financial #: [id number] Patient Name: Shyam Dow Study #: [id number] Initial MD: Day Baig Date of : 1940 Study Date: 08/28/20 18 Medication (Drip) Medication Time Given Dosage/Unit Concentration/Unit Diluent (ml) Solution ANCEF 08/28/2018 5:48:34 PM 2 g 2 g ANCEF given in lab by Sofia Thrasher RN via Peripheral IV. Ordered by Day Baig. Reason: As per physicians verbal order. IV Solutions 08/28/2018 5:24:52 PM 0 mL (IV) 500 NaCl .9 IV Solutions given in lab by Sofia Thrasher RN in Right Forearm via Peripheral IV. Pump/Drip Flow = 20 ml/hr using NaCl .9. Ordered by Day Baig. IV Solutions 08/28/2018 5:24:53 PM 0 mL (IV) 500 NaCl .9 IV Solutions given in lab by Sofia Thrasher RN in Left Forearm via Peripheral IV. Pump/Drip Flow = 20 ml/hr using NaCl .9. Ordered by Day Baig. VANCOMYCIN DRIP 08/28/2018 5:46:23 PM 1 g 1 g VANCOMYCIN DRIP given in lab by Sofia Thrasher RN via Peripheral IV. Ordered by Day Baig. Reason: As per physicians verbal order. 08/28/2018 6:48:58 PM Financial #: [id number] 5 of 9 Patient Name: Shyam Dow Study #: [id number] Initial MD: Day Baig Date of : 1940 Study Date: 08/28/2018 Initial Case Assessment Cardiovascular HR NIBP 80 127/66 Neurological State Oriented to time-place- Alert Moves all extremities person Respiration - General Respiration Rate SpO2 (%) (B/min) 18 100 Final Case Assessment Cardiovascular HR NIBP 96 114/71 Edema Present Skin color Skin None Normal Warm Dry Circulatory - Right Pulses Dorsalis Pedis 1 Scale (0,1,2,3,4,d) Circulatory - Left Pulses Dorsalis Pedis 1 Scale (0,1,2,3,4,d) Circulatory - Lower Extremities Color Lower Left Normal Neurological State Drowsy Moves all extremities Respiration - General Respiration Rate SpO2 (%) O2 (lpm) (B/min) 11 99 4 Chronological Log 08/28/2018 6:48:58 PM Financial #: [id number] 6 of 9 Patient Name: Shyam Dow Study #: [id number] Initial MD: Day Baig Date of : 1940 Study Date: 08/28/2018 Time Study Chronological Log 17:24:10 Patient arrived via Bed. 17:24:11 Patient Name, D.O.B, / Armband Verified By R.N. 17:24:12 Consent signed by the physician and the patient and verified by the Financial Operations Analyst staff. 17:24:12 Pre-op and post- op instructions given; patient acknowledges understanding of instructions. 17:24:15 Verbal Stimulation=2 Physical Stimulation=2 Airway=2 Respiration=2 TOTAL=8. (0=absent, 1=li mited, 2=present) 17:24:15 Patient has been NPO for More than 6Hrs. 17:24:16 Skin Breakdown/none per patient 17:24:22 4 l/min OXYGEN given in lab by Sofia Thrasher, BORIS via Nasal. Ordered by Day Baig. Philly son: For sedation. 17:24:42 Patient Warmer Placed on the Table. 17:24:43 Disposable Defibrillator Pads Placed On Patient. 17:24:44 Bladimir Prominences Protected 17:24:47 A # 20 IV was noted in the Forearm (left). Grade = 0 17:24:48 A # 20 IV was noted in the Forearm (right). Grade = 0 17:24:49 History and physical on the chart or being dictated. Assessment: Initial Case, HR=80 BPM, JUTY=068/66 mmhg 17:24:50 Neurological: State=Alert, Ox3, HAYS Respiration: Resp=18 B/min, FbE8=554 % IV Solutions given in lab by Sofia Thrasher RN in Right Forearm via Peripheral IV. Pump/Drip Flow = 20 ml/hr using 17:24:52 NaCl .9. Ordered by Day Baig. IV Solutions given in lab by Sofia Thrasher RN in Left Forearm via Peripheral IV. Pump/Drip F low = 20 ml/hr using 17:24:53 NaCl .9. Ordered by Day Baig. 17:25:36 MD arrived. 17:40:51 Anesthesia at bedside. Assumes care of patient. 17:41:40 All vital signs will be recorded on anesthesia flow sheet. Please refer to documentation. 17:44:15 Table restraints applied according to hospital policy 1 g VANCOMYCIN DRIP given in lab by Sofia Thrasher RN via Peripheral IV. Ordered by Gabriele Baig Reason: As 17:46:23 per physicians verbal order. 2 g ANCEF given in lab by Sofia Thrasher RN via Peripheral IV. Ordered by Day Baig. Reas on: As per physicians 17:48:34 verbal order. 17:48:48 2% CHLORHEXIDINE GLUCONATE WASH AND NASAL SWIPE DONE PRIOR TO PROCEDURE. 17:48:59 Anesthesiologist present for LMA insertion. 17:49:10 Left Upper Chest Prepped Times Two. First Sponge And Instrument Count Done by Ashely Barker RCIS. 17:49:47 Hypo's: 1, Sponges: 20, Bovie/scratch: bovie/scratch Sutures: 10, Blades: 1, Instruments: 26, Syveck Patches: 0 Verified by BL 17:51:32 Bovie ground pad applied to: right thigh 17:52:25 Reference ECG taken 17:57:42 A sterile drape was applied after a 5 minute prep drying time. 18:02:40 notified ready. 08/28/2018 6:48:58 PM Financial #: [id number] 7 of 9 Patient Name: Shyam Dow Study #: [id number] Initial MD: Day Baig Date of : 1940 Study Date: 08/28/2018 18:03:01 MD arrived. Time Out. Correct patient, procedure, procedure equipment, site and side verified with physicia n present. Time 18:06:55 concurred by MD, individual staff and SAUSAGE SMOKER. Time Out #2 - Consents verified, patient in correct position, all results are labled and displa yed, safety precautions 18:07:02 taken, antibiotics administered. Time out concurred by MD, individual staff and SAUSAGE SMOKER in procedu re 18:08:31 Case Start 18:08:33 50 mL 2% XYLOCAINE given in lab by Day Baig in Left shoulder via Subcutaneous. Ordered by Day Baig. 18:08:47 Surgical Incision Made. 18:08:48 A pocket was created at the Lt. upper chest. 18:10:28 A device was explanted. 18:12:57 Vascular access was obtained in the Subclav. Vein (Lft. 18:13:03 Wire inserted 18:13:13 A SAFE SHEATH, FR9, 13CM FR 9 was advanced into the Subclav. Vein (Lft using the Cutdown te chnique. 18:14:17 A LEAD, ENDOTAK RELIANCE SG 64CM (DEFIB) 64CM was inserted and positioned in the RV. 18:15:16 Lead placement verified under fluoroscopy 18:19:50 The RV Lead Was Repositioned under fluoro 18:21:37 The RV lead impedance and threshold being tested. 18:23:04 The RV lead was sutured to the fascia. 18:23:23 Pocket flushed with antibiotic solution 18:23:37 The device was replaced in the pocket and reconnected to the new RV lead. 18:24:33 The existing RV lead was disconnected and capped. 18:27:49 The device is retested inside the pocket.(through the programmor) 18:31:46 Pocket flushed again with antibiotic solution Second Sponge And Instrument Count Done by Ashely Barker RCIS. 18:33:24 Hypo's: 2, Sponges: 20, Bovie/scratch: 2 Sutures: ~SUTURE~, Blades: 1, Instruments: ~INSTRU~, Syveck Patches: ~SYVECK PATCH~ Verified by MM 18:35:21 The pocket was closed. 18:35:26 Implant Procedure was performed. new RV defib lead 18:36:27 A Bivent ICD Implant . (Dual) New RV Lead insert only 18:38:48 Case End (Physician broke scrub) 18:40:25 PACU called. Spoke to Byrnes. 18:40:32 Bedside Report will be given. Final Sponge And Instrument Count Done by Sofia Thrasher RN. 18:40:37 Hypo's: 1, Sponges: 20, Bovie/scratch: bovie/scratch Sutures: 10, Blades: 1, Instruments: 26, Syveck Patches: 0 18:41:35 Steri-strips and a sterile dressing applied to site. 18:45:11 LMA removed by anesthesia and pt placed to supplemental oxygen by [facility]. Assessment: Final Case, HR=96 BPM, GKZF=936/71 mmhg, Edema=None, Color=Normal, Skin = Warm, Dry Right Pulses: Isaias Ped=1 Left Pulses: Isaias Ped=1 18:46:20 Lower Left Extremities: Color=Normal Neurological: State=Drowsy, HAYS Respiration: Resp=11 B/min, SpO2=99 %, O2=4 lpm 08/28/2018 6:48:58 PM Financial #: [id number] 8 of 9 Patient Name: Shyam Dow Study #: [id number] Initial MD: Day Baig Date of : 1940 Study Date: 08/28/2018 18:47:19 No case complications noted. 18:47:19 Cine recording checked. 18:47:34 Patient moved to stretcher 18:52:35 Defibrillator and ground pads removed. Skin intact. 18:53:50 A sling was placed on the affected arm. 18:55:10 Pt transported to PACU via bed with SAUSAGE SMOKER and tech accompanying him in stable condition. End Study - Contrast Media Used In Study Contrast Total Opened (mL) Total Used (mL) Total Wasted (mL) Unspecified 0 0 0 End Study - Maximum Contrast Load Max Contrast Load (mL) 549.5 End Study - Radiation Exposure Fluoro Time (minutes) 4.4 End Study - Patient Disposition Complications Transferred To No Telemetry Bed 08/28/2018 6:48:58 PM Financial #: [id number]
--- NOTE | 2018-08-28 19:34 | XR ---
EXAM DATE: 08/28/2018 7:27 PM EST AGE/SEX: 78 years / Male INDICATIONS: Post pacemaker. CLINICAL DATA: This is the patient's initial encounter. Patient reports that signs and symptoms have been present for 1 day and indicates a pain score of Nonresponsive. MEDICAL/SURGICAL HISTORY: Non-responsive. Non-responsive. COMPARISON: [facility] [place], CHEST 2V PA&LAT, 08/26/2018. . FINDINGS: A single AP view of the chest demonstrates cardiomegaly. Previous sternotomy and mitral valve surgery . Pacer leads project over right atrium, right ventricle and coronary sinus with 2 leads in the right ventricle.. Mild interstitial edema pattern. CONCLUSION: 2 pacer leads overlie right ventricle with additional leads in right atrium and overlying coronary si nus. Previous mitral bowel surgery. Mild edema pattern. Electronically signed by: Frandy Cueva MD 08/28/2018 7:32 PM EST
--- NOTE | 2018-08-28 21:16 | MB ---
cc: Day Baig MD DATE: 08/28/2018 REASON FOR CONSULTATION: Heart failure, right ventricular defibrillator lead fracture. HISTORY OF PRESENT ILLNESS: Mr. Dow is a 78-year-old gentleman with a history of congestive heart failure, cardiomyopathy, coronary artery disease, coronary artery bypass grafting, previous biventricular pacer defibrillator insertion with previous generator replacement, who was referred to the emergency room due to shortness of breath and uncompensated heart failure. During the hospitalization, a nuclear stress study was negative with an ejection fraction of around 30%. There was a right ventricular defibrillator lead fracture. The patient is basically a secondary prevention. He has had a previous defibrillator shock. I was consulted for evaluation and management. The chart was reviewed. The patient was evaluated. ALLERGIES: NONE. SOCIAL HISTORY: The gentleman stopped smoking and drinking. FAMILY HISTORY: Noncontributory to his current medical condition. MEDICATIONS: 1. Lipitor 40 mg a day. 2. Ibuprofen. 3. Levoxyl 200 mcg a day. 4. Zofran. 5. Entresto. 6. Torsemide. REVIEW OF SYSTEMS: Currently, the patient refers shortness of breath, but significantly improved. No chest pain or chest discomfort. PHYSICAL EXAMINATION: GENERAL: Alert, fully oriented. VITAL SIGNS: Blood pressure 105/51, pulse 76, respiratory rate 18. LUNGS: Ventilated. CARDIOVASCULAR: S1, S2. Regular. ABDOMEN: Soft. No mass or bruit. EXTREMITIES: No edema. ELECTROCARDIOGRAM: Sinus rhythm with Bi-V pacing. LABORATORY DATA: Hemoglobin 10, white blood cells 4.0. INR 1.2. Potassium 4.0, creatinine 0.91. ASSESSMENT AND RECOMMENDATIONS: Mr. Dow's condition has significantly improved. The gentleman's edema completely resolved. His shortness of breath is getting better. The right ventricular defibrillator lead is fractured. There is a lot of noise that can lead to inappropriate shocks and also low impedance. The lead needs to be replaced. The risks, the nature and the benefits of the procedure were clearly stated to him. Risks include pneumothorax, cardiac perforation, stroke and even . The patient understand and agrees to proceed. The procedure will be performed during his hospitalization. MD SILVA Levy/lissa , 06:51 PM , 07:01 PM
--- NOTE | 2018-08-28 23:52 | MP ---
cc: Day Baig MD, Hanscy MD VanDemark, Melanie R MD DATE OF OPERATION: 08/28/2018 PROCEDURE PERFORMED: 1. Biventricular pacer defibrillator. 2. New right ventricular defibrillator lead insertion. INDICATIONS: Mr. Dow is a 78-year-old gentleman with history of congestive heart failure, cardiomyopathy, right ventricular defibrillator lead fracture, who was admitted due to uncompensated heart failure. During hospitalization, condition significantly improved. Decision for lead replacement was taken. The risks, the nature and the benefits of the procedure were clearly stated to him. Risks include pneumothorax, cardiac perforation, stroke, need for open heart surgery and even . The patient understood and agreed to proceed. PROCEDURE: After that informed consent was obtained, the patient was brought to the EP lab where he was prepped and draped in the usual sterile fashion. Conscious sedation was initiated and maintained throughout the procedure by the anesthesiologist. Once sedation was verified, the left infraclavicular area was anesthetized with 2% Xylocaine. Using modified Seldinger technique, using a #11 blade scalpel, a 3 cm incision was made over the existing generator. This incision was taken down to fascial layers with Bovie cautery and blunt dissection. Once exposed, generator was removed from the pocket. Scar tissue was removed from the lead. Pocket was expanded, pocket incision was performed. Then, using modified Seldinger technique, the left subclavian vein was cannulated. On one occasion; 1 guidewire was advanced. A 2-0 Vicryl suture was placed around the wire to prevent backbleeding. At this point, over a wire, a 9-Hungarian dilator and introducer was advanced. As dilator and wire were removed, an active fixation right ventricular pacing sensing defibrillator lead was advanced. After adequate pacing and sensing threshold obtained, the lead was secured in the pocket using #2 Ethibond suture. At that point, the pocket was copiously flushed with antibiotic solution. After disconnecting the existing right ventricular pacing sensing defibrillatory lead, stylet was advanced, and I did unscrew the lead. The head of [place] was called and the lead was capped and placed into the pocket. At that point, the new lead was connected to the generator and placed into the pocket. At this point, the wound closed. The deep fascial layer was approximated using #2-0 Vicryl suture in a continuous fashion. The subcutaneous layer was approximated with #2-0 Vicryl suture in a continuous fashion. The subcuticular layer was approximated using #2-0 Vicryl suture in a continuous fashion. Dermabond adhesive was applied to the wound followed by a sterile pressure dressing. There was no complication. The patient tolerated the procedure. BLOOD LOSS: Minimal. IMPLANTED HARDWARE: 1. The implanted ventricular pacing sensing defibrillatory lead is a [employer] model number 0181, serial #[id number]. The explanted/implanted biventricular pacer defibrillator generator is a [place]. Model #6151, serial #[id number]. 2. Threshold, the right ventricular paced ejection bipolar mode was 0.61 at 0.5 millisecond, lead impedance 460 ohms; however, 6.8 millivolt. The left ventricular pacing threshold in the bipolar mode was 0.4 volt at 0.5 milliseconds and lead impedance rated 670 ohms. P-wave 2.8 millivolts. The left ventricular paced ejection bipolar mode was 0.7 volts at 1 millisecond. Lead impedance is 360 ohms: Setting the device in a DDD 50, upper mid 130 beats per minute. LV first by 40 milliseconds, defibrillatory for 2 zones, 1 zone for ventricular tachycardia, impedance 160-240 beats per minute. Initial therapy consists of one burst of ATP 1 ramp, 81% ____ followed by 20, then 21, then 31, and ____ 41 joule defibrillatory shock. Second zone ventricular fibrillation above 240 beats per minute, first therapy at 21 and at 31 milliseconds, at 41 given the defibrillatory shock. Comprehensive successful biventricular pacer defibrillator removal successful of a right ventricular defibrillator lead implantation and pocket revision. RECOMMENDATION: The patient is going to be transferred to the telemetry unit. He will be observed. When stable, can be discharged home. MD SILVA Levy/melonie/kael , 06:47 PM , 07:01 PM
[2018-08-29] MEDS: ceFAZolin 2 GM Premix Inj 2 GM/50 ML PIGGYBACK IV.SIG SCH ×3 (00:01→17:00)
[2018-08-29] MEDS: Ferrous Sulfate 325 MG Tablet PO SCH (08:04)
[2018-08-29] MEDS: Insulin NovoLOG Aspart Correctional Sugar Inj SQ SCH ×2 (08:05→11:54)
[2018-08-29 08:13] LABS: Baso % (Auto) 0.3 % (0.0-2.0); Hematocrit 30.4 % (39.0-51.0); Hemoglobin 9.3 gm/dL (13.0-17.0); Lymph # (Auto) 0.5 th/mm3 (1.0-4.8); Lymph % (Auto) 22.7 % (9.0-44.0); Mean Corpuscular Hemoglobin 23.3 pg (27.0-34.0); Mean Corpuscular Volume 76.5 fL (80.0-100.0); Mean Platelet Volume 11.8 fL (7.0-11.0); Mono # (Auto) 0.1 th/mm3 (0.0-0.9); Mono % (Auto) 4.4 % (0.0-8.0); Neut # (Auto) 1.6 th/mm3 (1.8-7.7); Neut % (Auto) 72.6 % (16.0-70.0); Platelet Count 135 th/mm3 (150-450); Red Blood Count 3.97 mil/mm3 (4.50-5.90); Red Cell Distribution Width 27.6 % (11.6-17.2); White Blood Count 2.2 th/mm3 (4.0-11.0)
[2018-08-29 08:19] LABS: Mean Corpuscular HGB Conc 30.5 % (32.0-36.0)
[2018-08-29 08:30] LABS: Calcium 8.4 mg/dL (8.5-10.1); Carbon Dioxide 20.9 meq/L (21.0-32.0); Potassium 4.8 meq/L (3.5-5.1)
--- NOTE | 2018-08-29 08:31 | ECG ---
Date Performed: 08/28/2018 Time Performed: 19:15:34 PTAGE: 78 years EKG: ELECTRONIC VENTRICULAR PACEMAKER ABNORMAL RHYTHM ECG PREVIOUS TRACING : 08/26/2018 01.10 DOCTOR: Noel López Interpretating Date/Time 08/29/2018 08:27:53
[2018-08-29 08:54] LABS: Acanthocytes Occ; Ovalocytes 1+; Tear Drop Cells 1+
[2018-08-29 08:55] LABS: Dimorphic RBC Present
--- NOTE | 2018-08-29 10:00 | P.PNFP ---
Subjective Interval history: Patient seen and examined at bedside this morning. He is resting comfortably in bed, in no acute distress. He says that the procedure went well and has no complaints. Understands the plan moving forward that if stable he can be discharged later today. He denies any chest pain, shortness of breath, abdominal pain, problems with urination or defecation. All questions were answered at bedside. <Ester Burgess - 08/29/18 10:00> Results - Labs Result diagrams: 08/29/18 07:28 08/29/18 07:28 <Safia Parker - 08/29/18 14:38> Abnormal lab results 08/29/18 08/29/18 08/29/18 Range/Units 07:28 07:28 07:39 WBC 2.2 L (4.0-11.0) th/mm3 RBC 3.97 L (4.50-5.90) mil/mm3 Hgb 9.3 L (13.0-17.0) gm/dL Hct 30.4 L (39.0-51.0) % MCV 76.5 L (80.0-100.0) fL MCH 23.3 L (27.0-34.0) pg MCHC 30.5 L (32.0-36.0) % RDW 27.6 H (11.6-17.2) % Plt Count 135 L (150-450) th/mm3 MPV 11.8 H (7.0-11.0) fL Neut % (Auto) 72.6 H (16.0-70.0) % Neut # (Auto) 1.6 L (1.8-7.7) th/mm3 Lymph # (Auto) 0.5 L (1.0-4.8) th/mm3 Platelet Estimate Low L (Normal) Platelet Morphology Enlarged H (Normal) Dimorphic RBCs Present H (None) Tear Drop Cells 1+ H (None) Ovalocytes 1+ H (None) Acanthocytes (Spur) Occ H (None) Keratocytes Occ H (None) Chloride 109 H (98-107) meq/L Carbon Dioxide 20.9 L (21.0-32.0) meq/L BUN 20 H (7-18) mg/dL Estimated GFR 82 L (>89) mL/min POC Glucose 158 H (68-110) mg/dl Random Glucose 144 H (74-106) mg/dL Calcium 8.4 L (8.5-10.1) mg/dL 08/29/18 Range/Units 11:13 WBC (4.0-11.0) th/mm3 RBC (4.50-5.90) mil/mm3 Hgb (13.0-17.0) gm/dL Hct (39.0-51.0) % MCV (80.0-100.0) fL MCH (27.0-34.0) pg MCHC (32.0-36.0) % RDW (11.6-17.2) % Plt Count (150-450) th/mm3 MPV (7.0-11.0) fL Neut % (Auto) (16.0-70.0) % Neut # (Auto) (1.8-7.7) th/mm3 Lymph # (Auto) (1.0-4.8) th/mm3 Platelet Estimate (Normal) Platelet Morphology (Normal) Dimorphic RBCs (None) Tear Drop Cells (None) Ovalocytes (None) Acanthocytes (Spur) (None) Keratocytes (None) Chloride (98-107) meq/L Carbon Dioxide (21.0-32.0) meq/L BUN (7-18) mg/dL Estimated GFR (>89) mL/min POC Glucose 157 H (68-110) mg/dl Random Glucose (74-106) mg/dL Calcium (8.5-10.1) mg/dL Short CBC 08/29/18 Range/Units 07:28 WBC 2.2 L (4.0-11.0) th/mm3 Hgb 9.3 L (13.0-17.0) gm/dL Hct 30.4 L (39.0-51.0) % Plt Count 135 L (150-450) th/mm3 BMP 08/29/18 07:28 Sodium 137 Potassium 4.8 D Chloride 109 H Carbon Dioxide 20.9 L BUN 20 H Creatinine 0.90 Calcium 8.4 L <Safia Parker - 08/29/18 14:38> Abnormal lab results 08/29/18 08/29/18 08/29/18 Range/Units 07:28 07:28 07:39 WBC 2.2 L (4.0-11.0) th/mm3 RBC 3.97 L (4.50-5.90) mil/mm3 Hgb 9.3 L (13.0-17.0) gm/dL Hct 30.4 L (39.0-51.0) % MCV 76.5 L (80.0-100.0) fL MCH 23.3 L (27.0-34.0) pg MCHC 30.5 L (32.0-36.0) % RDW 27.6 H (11.6-17.2) % Plt Count 135 L (150-450) th/mm3 MPV 11.8 H (7.0-11.0) fL Neut % (Auto) 72.6 H (16.0-70.0) % Neut # (Auto) 1.6 L (1.8-7.7) th/mm3 Lymph # (Auto) 0.5 L (1.0-4.8) th/mm3 Platelet Estimate Low L (Normal) Platelet Morphology Enlarged H (Normal) Dimorphic RBCs Present H (None) Tear Drop Cells 1+ H (None) Ovalocytes 1+ H (None) Acanthocytes (Spur) Occ H (None) Keratocytes Occ H (None) Chloride 109 H (98-107) meq/L Carbon Dioxide 20.9 L (21.0-32.0) meq/L BUN 20 H (7-18) mg/dL Estimated GFR 82 L (>89) mL/min POC Glucose 158 H (68-110) mg/dl Random Glucose 144 H (74-106) mg/dL Calcium 8.4 L (8.5-10.1) mg/dL Short CBC 08/29/18 Range/Units 07:28 WBC 2.2 L (4.0-11.0) th/mm3 Hgb 9.3 L (13.0-17.0) gm/dL Hct 30.4 L (39.0-51.0) % Plt Count 135 L (150-450) th/mm3 [facility] 08/29/18 07:28 Sodium 137 Potassium 4.8 D Chloride 109 H Carbon Dioxide 20.9 L BUN 20 H Creatinine 0.90 Calcium 8.4 L <Ester Burgess - 08/29/18 10:00> - Imaging Impressions Chest X-Ray 08/28/18 00:00 CONCLUSION: 2 pacer leads overlie right ventricle with additional leads in right atrium and overlying coronary sinus. Previous mitral bowel surgery. Mild edema pattern. <Safia Parker - 08/29/18 14:38> Impressions Chest X-Ray 08/28/18 00:00 CONCLUSION: 2 pacer leads overlie right ventricle with additional leads in right atrium and overlying coronary sinus. Previous mitral bowel surgery. Mild edema pattern. <Ester Burgess - 08/29/18 10:00> Physical Exam Vital signs: Vital Signs 08/28/18 16:00 08/28/18 19:02 08/28/18 19:15 Temperature 98.4 F 98.8 F Pulse Rate 82 87 86 Respiratory Rate 17 18 18 Blood Pressure 123/62 116/58 L 118/59 L Pulse Oximetry 96 100 98 08/28/18 19:30 08/28/18 19:45 08/28/18 20:00 Temperature 97.3 F L Pulse Rate 79 79 82 Respiratory Rate 18 18 20 Blood Pressure 113/57 L 110/54 L 117/71 Pulse Oximetry 98 96 97 08/28/18 20:30 08/28/18 21:00 08/28/18 22:00 Temperature 98.8 F Pulse Rate 78 83 83 Respiratory Rate 18 Blood Pressure 117/58 L Pulse Oximetry 96 08/28/18 23:00 08/29/18 00:00 08/29/18 01:00 Temperature 98 F Pulse Rate 84 82 87 Respiratory Rate 16 Blood Pressure 106/63 Pulse Oximetry 96 08/29/18 02:00 08/29/18 03:00 08/29/18 04:00 Temperature 98 F Pulse Rate 83 82 82 Respiratory Rate 19 Blood Pressure 110/71 Pulse Oximetry 98 08/29/18 05:00 08/29/18 06:00 08/29/18 07:00 Temperature Pulse Rate 80 82 86 Respiratory Rate Blood Pressure Pulse Oximetry 08/29/18 08:00 08/29/18 08:01 08/29/18 09:00 Temperature 97.8 F Pulse Rate 86 82 Respiratory Rate 18 Blood Pressure 90/56 L Pulse Oximetry 97 96 08/29/18 10:00 08/29/18 11:00 08/29/18 12:00 Temperature 98.1 F Pulse Rate 85 84 82 Respiratory Rate 16 Blood Pressure 107/68 Pulse Oximetry 98 08/29/18 13:00 08/29/18 14:00 Temperature Pulse Rate 85 84 Respiratory Rate Blood Pressure Pulse Oximetry Intake & Output 08/28/18 08/29/18 08/29/18 18:59 06:59 18:59 Intake Total 906 / 906 390 / 390 50 / 50 Output Total 900 / 900 300 / 300 Balance 6 / 6 90 / 90 50 / 50 Weight 95.7 kg Intake: IV 206 / 206 150 / 150 50 / 50 Heparin/D5W 25,000 U/250 mL 25, 96 / 96 000 unit In 250 ml @ Per Protocol IV.CONT TITRATE PRN Rx #:[id number] Venofer Inj 200 MG In NS Inj 110 / 110 100 ML @ 110 mls/hr IV.SIG DAILY [facility] Rx#:[id number] Ancef 1 GM Premix Inj 2 gm In 100 / 100 100 ml @ 0 mls/hr IV.SIG .STK- MED ONE Rx#:[id number] Ancef 2 GM Premix Inj 2 gm In 50 / 50 50 / 50 50 ml @ 100 mls/hr IV.SIG Q8H [facility] Rx#:[id number] Oral 240 / 240 Anesthesia Amount 700 / 700 Output: Urine 900 / 900 300 / 300 Other: # Voids 1 # Bowel Movements 0 <Safia Parker - 08/29/18 14:38> Vital Signs 08/28/18 11:43 08/28/18 12:00 08/28/18 16:00 Temperature 98.0 F 98.4 F Pulse Rate 73 82 Respiratory Rate 17 17 Blood Pressure 115/56 L 123/62 Pulse Oximetry 98 98 96 08/28/18 19:02 08/28/18 19:15 08/28/18 19:30 Temperature 98.8 F Pulse Rate 87 86 79 Respiratory Rate 18 18 18 Blood Pressure 116/58 L 118/59 L 113/57 L Pulse Oximetry 100 98 98 08/28/18 19:45 08/28/18 20:00 08/28/18 20:30 Temperature 97.3 F L 98.8 F Pulse Rate 79 82 78 Respiratory Rate 18 20 18 Blood Pressure 110/54 L 117/71 117/58 L Pulse Oximetry 96 97 96 08/28/18 21:00 08/28/18 22:00 08/28/18 23:00 Temperature Pulse Rate 83 83 84 Respiratory Rate Blood Pressure Pulse Oximetry 08/29/18 00:00 08/29/18 01:00 08/29/18 02:00 Temperature 98 F Pulse Rate 82 87 83 Respiratory Rate 16 Blood Pressure 106/63 Pulse Oximetry 96 08/29/18 03:00 08/29/18 04:00 08/29/18 05:00 Temperature 98 F Pulse Rate 82 82 80 Respiratory Rate 19 Blood Pressure 110/71 Pulse Oximetry 98 08/29/18 06:00 08/29/18 07:00 08/29/18 08:00 Temperature 97.8 F Pulse Rate 82 86 86 Respiratory Rate 18 Blood Pressure 90/56 L Pulse Oximetry 97 08/29/18 08:01 08/29/18 09:00 Temperature Pulse Rate 82 Respiratory Rate Blood Pressure Pulse Oximetry 96 Intake & Output 08/28/18 08/29/18 08/29/18 18:59 06:59 18:59 Intake Total 906 / 906 390 / 390 Output Total 900 / 900 300 / 300 Balance 6 / 6 90 / 90 Weight 95.7 kg Intake: IV 206 / 206 150 / 150 Heparin/D5W 25,000 U/250 mL 25, 96 / 96 000 unit In 250 ml @ Per Protocol IV.CONT TITRATE PRN Rx #:[id number] Venofer Inj 200 MG In NS Inj 110 / 110 100 ML @ 110 mls/hr IV.SIG DAILY [facility] Rx#:[id number] Ancef 1 GM Premix Inj 2 gm In 100 / 100 100 ml @ 0 mls/hr IV.SIG .STK- MED ONE Rx#:[id number] Ancef 2 GM Premix Inj 2 gm In 50 / 50 50 ml @ 100 mls/hr IV.SIG Q8H [facility] Rx#:[id number] Oral 240 / 240 Anesthesia Amount 700 / 700 Output: Urine 900 / 900 300 / 300 Other: # Voids 1 # Bowel Movements 0 <Ester Burgess - 08/29/18 10:00> Narrative: GENERAL: Well-developed male of stated age laying flat in bed, not in acute respiratory distress SKIN: Warm and dry. Transverse scar from pacemaker placement on left anterior chest, laparoscopic scars present on abdomen HEAD: Atraumatic. Normocephalic. EYES: Pupils equal and round. No scleral icterus. No injection or drainage. ENT: No nasal bleeding or discharge. Mucous membranes pink and moist. NECK: Trachea midline. No JVD. MUSCULOSKELETAL: Extremities without clubbing, cyanosis, or edema. No obvious deformities. No edema appreciated bilaterally. CARDIOVASCULAR: Regular rate and rhythm, no murmurs appreciated. RESPIRATORY: Clear to auscultation bilaterally. GASTROINTESTINAL: Abdomen soft, non-tender, nondistended. NEUROLOGICAL: Awake and alert. No obvious cranial nerve deficits. Motor grossly within normal limits. PSYCHIATRIC: Appropriate mood and affect; insight and judgment normal. <Ester Burgess - 08/29/18 10:00> Assessment and Plan - Assessment (1) Pacemaker failure Code(s): T82.118A - Breakdown (mechanical) of other cardiac electronic device, initial encounter Status: Acute (2) Acute exacerbation of CHF (congestive heart failure) Code(s): I50.9 - Heart failure, unspecified Status: Acute (3) Unstable angina Code(s): I20.0 - Unstable angina Status: Acute (4) Diabetes mellitus type 2 in obese Code(s): E11.69 - Type 2 diabetes mellitus with other specified complication; E66.9 - Obesity, unspecified Status: Acute (5) Hypertension Code(s): I10 - Essential (primary) hypertension Status: Acute (6) Hypothyroidism Code(s): E03.9 - Hypothyroidism, unspecified Status: Acute (7) Anemia Code(s): D64.9 - Anemia, unspecified Status: Acute (8) Thrombocytopenia Code(s): D69.6 - Thrombocytopenia, unspecified Status: Acute <Safia Parker - 08/29/18 14:38> (1) Pacemaker failure Code(s): T82.118A - Breakdown (mechanical) of other cardiac electronic device, initial encounter Status: Acute (2) Acute exacerbation of CHF (congestive heart failure) Code(s): I50.9 - Heart failure, unspecified Status: Acute (3) Unstable angina Code(s): I20.0 - Unstable angina Status: Acute (4) Diabetes mellitus type 2 in obese Code(s): E11.69 - Type 2 diabetes mellitus with other specified complication; E66.9 - Obesity, unspecified Status: Acute (5) Hypertension Code(s): I10 - Essential (primary) hypertension Status: Acute (6) Hypothyroidism Code(s): E03.9 - Hypothyroidism, unspecified Status: Acute (7) Anemia Code(s): D64.9 - Anemia, unspecified Status: Acute (8) Thrombocytopenia Code(s): D69.6 - Thrombocytopenia, unspecified Status: Acute <Ester Burgess - 08/29/18 10:04> - Assessment and Plan 78-year-old male presents with unstable angina and CHF exacerbation with pulmonary edema seen on chest x-ray. He was admitted for diuresis and ACS rule out. Nuclear stress test unremarkable. Pacemaker changed 08/28. Cardiology has been consulted to assist with management. CHF exacerbation * Chest x-ray on admission shows pulmonary edema * BNP elevated at 442 on admission, downtrending * Switched to torsemide 20 mg p.o. daily by cardiology * Continue Entresto at current dose * Strict I's and O's * Fluid restrict to 1.5 L daily * No pedal edema on physical exam today. Clinically improved. * Okay to DC home today from medicine standpoint. Unstable angina * ACS workup was negative * Received aspirin 162 mg in the ED, patient takes 81 mg daily * Continue aspirin 81 mg * Heparin drip per Dr. Baig. Cardiology recommendations appreciated on DC of heparin drip. * SPECT shows only fixed defects/ no ischemia, but low EF. Pacemaker fracture * Status post pacemaker replacement on 08/28. * H/H 9.3/30.4-stable * On iron supplementation at home. * Receiving iron sucrose transfusions in hospital. * Iron studies show iron of 21. TIBC normal. Low % saturation. Thrombocytopenia * Mildly thrombocytopenic at 149 on admission * Platelet count increased from 123 to 135 today. Stable. * Will monitor closely due to patient currently being on heparin Diabetes type 2 * Hold metformin * Accu-Cheks with low-dose sliding scale insulin Hypertension * BP elevated to the 180s systolic on admission but now normotensive * Borderline hypotensive, holding morning dose of torsemide, Flomax on 08/28 * Resuming Torsemide and Flomax this a.m. Hypothyroidism * Continue home dose of levothyroxine 300 mg Tuesday through Tuesday and 200 mg Tuesday and Tuesday DVT prophylaxis: On heparin drip * Continue home Xarelto when heparin drip is discontinued FEN * Oral fluids only, restrict to 1.5 L * Will monitor electrolytes and replace as needed, watch for hypokalemia * Cardiac diet <Ester Burgess - 08/29/18 10:03> - Attending Attestation Patient dw resident team. Agree with assessment and plan <Safia Parker - 08/29/18 14:38>
[2018-08-29] MEDS: Iron Sucrose Inj 200 MG in Sodium Chlor 0.9% Inj 100 ML IV.SIG SCH ×2 (10:20→11:06)
--- NOTE | 2018-08-29 16:25 | P.PN ---
Subjective Interval history: Feeling better Physical Exam Vital signs: Vital Signs 08/28/18 19:02 08/28/18 19:15 08/28/18 19:30 Temperature 98.8 F Pulse Rate 87 86 79 Respiratory Rate 18 18 18 Blood Pressure 116/58 L 118/59 L 113/57 L Pulse Oximetry 100 98 98 08/28/18 19:45 08/28/18 20:00 08/28/18 20:30 Temperature 97.3 F L 98.8 F Pulse Rate 79 82 78 Respiratory Rate 18 20 18 Blood Pressure 110/54 L 117/71 117/58 L Pulse Oximetry 96 97 96 08/28/18 21:00 08/28/18 22:00 08/28/18 23:00 Temperature Pulse Rate 83 83 84 Respiratory Rate Blood Pressure Pulse Oximetry 08/29/18 00:00 08/29/18 01:00 08/29/18 02:00 Temperature 98 F Pulse Rate 82 87 83 Respiratory Rate 16 Blood Pressure 106/63 Pulse Oximetry 96 08/29/18 03:00 08/29/18 04:00 08/29/18 05:00 Temperature 98 F Pulse Rate 82 82 80 Respiratory Rate 19 Blood Pressure 110/71 Pulse Oximetry 98 08/29/18 06:00 08/29/18 07:00 08/29/18 08:00 Temperature 97.8 F Pulse Rate 82 86 86 Respiratory Rate 18 Blood Pressure 90/56 L Pulse Oximetry 97 08/29/18 08:01 08/29/18 09:00 08/29/18 10:00 Temperature Pulse Rate 82 85 Respiratory Rate Blood Pressure Pulse Oximetry 96 08/29/18 11:00 08/29/18 12:00 08/29/18 13:00 Temperature 98.1 F Pulse Rate 84 82 85 Respiratory Rate 16 Blood Pressure 107/68 Pulse Oximetry 98 08/29/18 14:00 08/29/18 15:00 08/29/18 16:00 Temperature 98.2 F Pulse Rate 84 82 82 Respiratory Rate 18 Blood Pressure 105/49 L Pulse Oximetry 97 Intake & Output 08/28/18 08/29/18 08/29/18 18:59 06:59 18:59 Intake Total 906 / 906 390 / 390 50 / 50 Output Total 900 / 900 300 / 300 Balance 6 / 6 90 / 90 50 / 50 Weight 95.7 kg Intake: IV 206 / 206 150 / 150 50 / 50 Heparin/D5W 25,000 U/250 mL 25, 96 / 96 000 unit In 250 ml @ Per Protocol IV.CONT TITRATE PRN Rx #:[id number] Venofer Inj 200 MG In NS Inj 110 / 110 100 ML @ 110 mls/hr IV.SIG DAILY ELZA Rx#:[id number] Ancef 1 GM Premix Inj 2 gm In 100 / 100 100 ml @ 0 mls/hr IV.SIG .STK- MED ONE Rx#:[id number] Ancef 2 GM Premix Inj 2 gm In 50 / 50 50 / 50 50 ml @ 100 mls/hr IV.SIG Q8H ELZA Rx#:[id number] Oral 240 / 240 Anesthesia Amount 700 / 700 Output: Urine 900 / 900 300 / 300 Other: # Voids 1 # Bowel Movements 0 - Constitutional no acute distress - Routine HEENT Exam Eye: Present: PERRL ENT: Present: mucous membranes moist - Routine Neck Exam Present: normal carotid upstroke - Routine Respiratory Exam Present: CTA bilaterally - Routine Cardiovascular Exam Present: RRR, S1, S2 - Routine Neurological Exam Present: alert, oriented X3 - Detailed Neurological Exam: Coma Scale Eye Opening: Spontaneous Verbal Response: Oriented Motor Response: [place] commands [place] Coma Scale Total: 15 Results - Labs CBC & Chem 7: 08/29/18 07:28 08/29/18 07:28 Laboratory Results - last 24 hr 08/28/18 08/28/18 08/28/18 17:09 19:06 21:19 WBC RBC Hgb Hct MCV MCH MCHC RDW Plt Count MPV Prelim Diff (Auto) Neut % (Auto) Lymph % (Auto) [place] % (Auto) Eos % (Auto) Baso % (Auto) Neut # (Auto) Lymph # (Auto) [place] # (Auto) Eos # (Auto) Baso # (Auto) WBC Differential Diff Scan Differential Comment Platelet Estimate Platelet Morphology Dimorphic RBCs Tear Drop Cells Ovalocytes Acanthocytes (Spur) Keratocytes APTT Sodium Potassium Chloride Carbon Dioxide Anion Gap BUN Creatinine Estimated GFR POC Glucose 86 95 105 Random Glucose Calcium 08/29/18 08/29/18 08/29/18 07:28 07:28 07:28 WBC 2.2 L RBC 3.97 L Hgb 9.3 L Hct 30.4 L MCV 76.5 L MCH 23.3 L MCHC 30.5 L RDW 27.6 H Plt Count 135 L MPV 11.8 H Prelim Diff (Auto) Slide review pending Neut % (Auto) 72.6 H Lymph % (Auto) 22.7 [place] % (Auto) 4.4 Eos % (Auto) 0.0 Baso % (Auto) 0.3 Neut # (Auto) 1.6 L Lymph # (Auto) 0.5 L [place] # (Auto) 0.1 Eos # (Auto) 0.0 Baso # (Auto) 0.0 WBC Differential . Diff Scan Auto diff confirmed Differential Comment . Platelet Estimate Low L Platelet Morphology Enlarged H Dimorphic RBCs Present H Tear Drop Cells 1+ H Ovalocytes 1+ H Acanthocytes (Spur) Occ H Keratocytes Occ H APTT 28.2 D Sodium 137 Potassium 4.8 D Chloride 109 H Carbon Dioxide 20.9 L Anion Gap 7 BUN 20 H Creatinine 0.90 Estimated GFR 82 L POC Glucose Random Glucose 144 H Calcium 8.4 L 08/29/18 08/29/18 07:39 11:13 WBC RBC Hgb Hct MCV MCH MCHC RDW Plt Count MPV Prelim Diff (Auto) Neut % (Auto) Lymph % (Auto) [place] % (Auto) Eos % (Auto) Baso % (Auto) Neut # (Auto) Lymph # (Auto) [place] # (Auto) Eos # (Auto) Baso # (Auto) WBC Differential Diff Scan Differential Comment Platelet Estimate Platelet Morphology Dimorphic RBCs Tear Drop Cells Ovalocytes Acanthocytes (Spur) Keratocytes APTT Sodium Potassium Chloride Carbon Dioxide Anion Gap BUN Creatinine Estimated GFR POC Glucose 158 H 157 H Random Glucose Calcium - Imaging Impressions Chest X-Ray 08/28/18 00:00 CONCLUSION: 2 pacer leads overlie right ventricle with additional leads in right atrium and overlying coronary sinus. Previous mitral bowel surgery. Mild edema pattern. Assessment and Plan - Assessment (1) Acute on chronic systolic and diastolic heart failure, NYHA class 3 Code(s): I50.43 - Acute on chronic combined systolic (congestive) and diastolic (congestive) heart failure Status: Acute Plan: Doing better SOB significantly improve Can be DH Follow up in 3-4 weeks (2) Ischemic cardiomyopathy Code(s): I25.5 - Ischemic cardiomyopathy Status: Acute Plan: On optimal medical management (3) Pacemaker lead malfunction Code(s): T82.110A - Breakdown (mechanical) of cardiac electrode, initial encounter Status: Acute Plan: Device well functioning Clean surgical wound Can be DH (4) Coronary artery disease Code(s): I25.10 - Atherosclerotic heart disease of [place] coronary artery without angina pectoris Status: Acute
== END 2018-08-29 18:34 | disposition home or self-care (01) ==
LOC: NEDA 11:08 → NEPC 11:08 → NEDA 16:33 → N04 17:10 → HCIS 08-28 19:28
PROVIDERS: ADMIT Family Medicine; ATTEND Family Medicine
PROC: LEADREV (ICD-10-PCS; 2018-08-28 17:30)